=== PATIENT | female | born 1935 | race Caucasian/White ===

== ENCOUNTER 2017-01-31 05:41 | Outpatient (CLI) | payer MEDICARE, OTHER ==
[~2017-01-31] VITALS: Ht 157.5 cm; Wt 52.2 kg
[~2017-01-31 05:41] MED LIST: AMLO5TAB2 PO; ASP325T PO; ATOR80TA PO; B12 SHOT IM; CALC-80 PO; CHOL100011 PO; COLC0.6T7 PO; DIPH25TA82 PO; EZET10TA5 PO; GLUC-113 PO; GLUC-96 PO; I CAPS; MAGN400T39 PO; MTP100TCR PO; OMG1KC PO; TRIA1CAP4 PO; UBID200C PO; VIT1CAPS31 PO
[2017-01-31] MEDS ORDERED: CHOL200059 PO (11:09)
[2017-01-31] MEDS ORDERED: GLIM2TAB PO (11:09)
[2017-01-31] MEDS ORDERED: ASPI-999 PO (11:09)
[2017-01-31] MEDS ORDERED: VALS320T14 PO (11:09)
[2017-01-31] MEDS ORDERED: OMEG-109 PO (11:09)
[2017-01-31] MEDS ORDERED: PANT40TA3 PO (11:09)
[2017-01-31] MEDS ORDERED: EST30C VG (11:09)
== END 2017-01-31 11:11 ==
LOC: PREOP 05:41
PROVIDERS: ATTEND Internal Medicine
DX: Z01.818 Encounter for other preprocedural examination (principal); Z86.010 Personal history of colon polyps; Z80.0 Family history of malignant neoplasm of digestive organs

== ENCOUNTER → 2017-02-02 | Day surgery (SDC) | payer MEDICARE ==
[~2017-02-02] MED LIST changes: +1/2 NS IV SOLUTION 1,000 ML IV ONE; +ASPI-999 PO; +CHOL200059 PO; +EST30C VG; +FLUMAZENIL (ROMAZICON) 0.1 MG/ML 5 ML VIAL INJ PRN; +GLIM2TAB PO; +HURRICAINE EXT TUBE (BENZOCAINE) XX PRN; +LIDOCAINE JELLY 2% (XYLOCAINE) 5 ML TUBE ONE; +MIDAZOLAM 2 MG/2 ML (VERSED) VIAL ONE; +NALOXONE 0.4 MG/ML 1 ML (NARCAN) VIAL IVP PRN; +OMEG-109 PO; +PANT40TA3 PO; +VALS320T14 PO; +fentaNYL INJECTION 100 MCG/2 ML AMP ONE
[2017-02-02 09:25] VITALS: BP 133/61
--- NOTE | 2017-02-02 09:38 | HISTORY AND PHYSICAL ---
DICTATING PHYSICIAN: Dr. Coon DATE OF ADMISSION: Mrs. Montano is an 81-year-old white female referred for screening colonoscopy. She is deemed to be of higher than average risk as her mother succumbed to colon cancer at the age of 75. Her last colonoscopy was 5 years ago. It was reviewed and medical record and reportedly normal by Dr. Jerry. No diverticular disease was noted and no neoplasia was found. Over the past year Mrs. Montano has noted change in bowel habit. She is going 5 to 6 times per day, stools are reportedly loose. She has not noted any bright red blood per rectum or melena. She has not been able to associate it with specific medication change. She denies cramping and has had no fecal incontinence. She denies chills or fever. She does have a past history of colon polyps as she recalls; I only have access to her last colonoscopy in early 2011. PAST MEDICAL HISTORY: 1. Significant for coronary artery disease. 2. She is status post bypass grafting many years ago. 3. She also has a bioprosthetic aortic valve. 4. Her last echo from June 2016 was reviewed and LV function was normal. She does have a severe aortic stenosis but denies chest pain, dyspnea on exertion or shortness of breath. 5. She appears younger than her stated age reports that she is physically active. PAST SURGICAL HISTORY: Significant for coronary artery bypass grafting and aortic valve replacement. MEDICATIONS: 1. On admission include: Metoprolol 100 mg daily. 2. Amlodipine 5 mg daily. 3. Glimepiride 2 mg daily. 4. Magnesium oxide 400 mg daily. 5. Valsartan 320 mg daily. 6. 81 mg aspirin daily. 7. Atorvastatin 80 mg at bedtime. 8. Zetia 10 mg at bedtime/ 9. Pantoprazole 40 mg she takes on a p.r.n. basis for reflux symptoms. 10. She does take fish oil. 11. Glucosamine/chondroitin. SOCIAL HISTORY: She is retired with no past smoking history and rare alcohol intake. PHYSICAL EXAMINATION: Reveals a pleasant white female, appearing younger than her stated age. Initial blood pressure is 164/64; at the end of the interview she was 140/60. Heart rate was 66 and regular. NECK: Revealed no JVD, adenopathy or bruits. HEENT EXAMINATION: Unremarkable. Sclera were anicteric, there is no evidence for pallor. CHEST: Clear. CV: Reveals regular rate and rhythm with a 2/6 systolic ejection murmur heard best at the left lower sternal border. No S3 or S4 are noted. There is a soft apical murmur as well 1 to 2/6 ABDOMEN: Soft, supple without masses, organomegaly or tenderness. EXTREMITIES: Reveal no cyanosis, clubbing, or edema. ASSESSMENT: The patient was set-up for screening colonoscopy on the 04 of April. The patient was advised to discontinue aspirin now and continue her other medications. Prep instructions with split dose Colyte prep were given and questions were answered. I thank you for the referral of this pleasant lady. Sincerely, Gustavo Coon Job ID: [id number] Dictated Date: 01/30/2017 15:02:00 Marketing Planning Manager Date: 01/31/2017 09:26:37/esmer
--- NOTE | 2017-02-02 10:51 | Pre-Op Note & Conscious Sedat ---
Pre-Operative Progress Note H&P Reviewed The H&P was reviewed, patient examined and no changes noted. Date H&P Reviewed: Feb 02, 2017 Conscious Sedation Pre-Proced ASA Class: 2 Airway Mallampati Classification: (inaja appropriate class) I. II. III, IV Lungs Heart ASA score ASA 1: a normal healthy patient ASA 2: a patient with a mild systemic disease (mid diabetes, controlled hypertension, obesity ASA 3: a patient with a severe systemic disease that limits activity (angina , COPD, prior Myocardial infarction) ASA 4: a patient with an incapacitating disease that is a constant threat to life (CHF, renal failure) ASA 5: a moribund patient not expected to survive 24 hrs. (ruptured aneurysm) ASA 6: a declared brain patient whose organs are being harvested. For emergent operations, add the letter E after the classification Grade 2 Sedation Plan: Analgesia, Amnesia, Plan communicated to team members, Discussed options with patient/fam, Discussed risks with patient/fam Note The patient is an appropriate candidate to undergo the planned procedure, sedation, and anesthesia. The patient immediately re-assessed prior to indication. YOVANNY WEIR MD Feb 02, 2017 10:51
[2017-02-02] MEDS: fentaNYL INJECTION 100 MCG/2 ML AMP IVP PRN ×2 (10:53→11:10)
[2017-02-02] MEDS: MIDAZOLAM 2 MG/2 ML (VERSED) VIAL IVP PRN ×3 (10:55→11:15)
[2017-02-02 11:40] VITALS: BP 122/58
[2017-02-02 12:10] VITALS: BP 139/63
[2017-02-02 12:30] VITALS: BP 139/63
--- NOTE | 2017-02-05 | PROCEDURE REPORT ---
PROCEDURE PHYSICIAN: YOVANNY WEIR DATE OF PROCEDURE: 02/02/2017 REFERRING PHYSICIAN: Dr. Díaz COLONOSCOPY SUMMARY: INDICATION FOR THE PROCEDURE: Screening colonoscopy. The patient was placed in the left lateral position. Prior to undergoing colonoscopy, digital rectal evaluation was performed. Anal sphincter tone was normal and the perianal reflex was intact. No abnormalities were noted to digital inspection of the anal canal or distal rectal vault. The colonoscope was then inserted into the rectum and under direct visualization, advanced to cecum. The cecum was identified by identification of the ileocecal valve, cecal strap, as well as appendiceal orifice. Photographic documentation was obtained. A careful inspection was made as the colonoscope was withdrawn. The patient tolerated the procedure well. FINDINGS: One small grade I internal hemorrhoid complex was present at the 2 o'clock position. The rectum, sigmoid colon, descending colon, transverse colon, ascending colon and cecum were otherwise unremarkable. No evidence for neoplasia, diverticular disease or vascular malformations were noted. ASSESSMENT: One small grade I internal hemorrhoid complex was noted at 2 o'clock position. This was an otherwise normal colonoscopy to cecum. Despite the patient's family history, considering her age and that this is her second normal screening colonoscopy, would not advocate future screening colonoscopy. I thank you for the referral of this pleasant lady. Sincerely, Job ID: [id number] Dictated Date: 02/02/2017 16:36:13 Rags Laborer Date: 02/04/2017 23:54:52 / jennifer
--- OUTSIDE RECORDS SUMMARY | 2017-02-25 08:01 | XMS REPORT | Continuity of Care Document ---
Author Author [facility] Organization [facility] Address Unknown Phone Unavailable Allergies Active Description Code Type Severity Reaction Onset Reported/Identified Relationship to Patient Clinical Status Yes niacin [id number] Drug Allergy Unknown N/A 12/04/2006 Medications Problems Date Dx Coded Attending Type Code Diagnosis Diagnosed By 09/26/2010 Ot 403.90 09/26/2010 Ot 585.9 01/15/2012 Ot 272.0 PURE HYPERCHOLESTEROLEM 01/15/2012 Ot 401.9 HYPERTENSION NOS 01/15/2012 Ot V10.05 HX OF COLONIC MALIGNANCY 01/15/2012 Ot V43.3 HEART VALVE REPLAC NEC 01/15/2012 Ot V45.81 AORTOCORONARY BYPASS 01/15/2012 Ot V58.66 LONG-TERM (CURRENT) USE OF ASPIRIN 01/15/2012 Ot V58.69 OTH MED,LT,CURRENT USE 01/15/2012 Ot V76.51 SCREEN MAL NEOP-COLON 05/26/2013 NIVIA ZUNIGA MD Ot 726.5 ENTHESOPATHY OF HIP 05/26/2013 NIVIA ZUNIGA MD Ot 737.30 IDIOPATHIC SCOLIOSIS 05/26/2013 NIVIA ZUNIGA MD Ot V57.1 PHYSICAL THERAPY NEC 10/23/2013 JOSE ROBERTSON MD Ot 723.1 CERVICALGIA 10/23/2013 JOSE ROBERTSON MD Ot V57.1 PHYSICAL THERAPY NEC 01/09/2014 JOSE ROBERTSON MD Ot 721.3 LUMBOSACRAL SPONDYLOSIS 01/09/2014 JOSE ROBERTSON MD Ot 722.52 LUMB/LUMBOSAC DISC DEGEN 01/09/2014 JOSE ROBERTSON MD Ot 723.1 CERVICALGIA 01/09/2014 JOSE ROBERTSON MD Ot 738.4 ACQ SPONDYLOLISTHESIS 01/09/2014 JOSE ROBERTSON MD Ot V58.69 OTH MED,LT,CURRENT USE 03/24/2014 NIVIA ZUNIGA MD Ot 719.45 JOINT PAIN-PELVIS 03/24/2014 NIVIA ZUNIGA MD Ot 724.2 LUMBAGO 03/24/2014 NIVIA ZUNIGA MD Ot V57.1 PHYSICAL THERAPY NEC 05/26/2015 CAROLYNN PEREIRA MD Ot 250.00 DIAB DEXTER WO COMPL, TYPE II OR UNSPEC TY 05/26/2015 CAROLYNN PEREIRA MD Ot 272.4 HYPERLIPIDEMIA NEC/NOS 05/26/2015 CAROLYNN PEREIRA MD Ot 403.90 HYPTNSV CHR KID DIS, UNSPEC, W CHR KD ST 05/26/2015 CAROLYNN PEREIRA MD Ot 414.01 CORONARY ATHEROSCLEROSIS OF [place] CORON 05/26/2015 CAROLYNN PEREIRA MD Ot 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 05/26/2015 CAROLYNN PEREIRA MD Ot 433.10 CAROTID ARTERY OCCLUSION W O CEREBRAL IN 05/26/2015 CAROLYNN PEREIRA MD Ot 585.9 CHRONIC KIDNEY DISEASE, UNSPECIFIED 05/26/2015 CAROLYNN PEREIRA MD Ot 786.09 RESPIRATORY ABNORM NEC 05/26/2015 CAROLYNN PEREIRA MD Ot 794.30 ABN CARDIOVASC STUDY NOS 05/26/2015 CAROLYNN PEREIRA MD Ot V43.3 HEART VALVE REPLAC NEC 05/26/2015 CAROLYNN PEREIRA MD Ot V45.81 AORTOCORONARY BYPASS 05/26/2015 CAROLYNN PEREIRA MD, Ot V58.69 OTH MED,LT,CURRENT USE 06/14/2015 BONNY LARA Ot 272.4 06/14/2015 BONNY LARA Ot 401.9 06/14/2015 BONNY LARA Ot 414.00 06/14/2015 BONNY LARA Ot 786.50 06/24/2015 BONNY LARA Ot 272.4 06/24/2015 BONNY LARA Ot 401.9 06/24/2015 BONNY LARA Ot 414.00 06/24/2015 BONNY LARA Ot 786.50 12/09/2015 MARY ANN CHAVARRIA Ot Z12.31 01/13/2016 Ot V76.12 01/13/2016 Ot 403.90 01/13/2016 Ot 585.9 01/13/2016 Ot 733.90 01/13/2016 Ot 401.9 01/13/2016 Ot 414.00 01/13/2016 Ot V43.3 01/13/2016 Ot V76.12 01/13/2016 Ot V72.84 01/13/2016 Ot 401.9 01/13/2016 Ot 414.00 01/13/2016 Ot 719.45 01/13/2016 Ot 722.52 01/13/2016 Ot 724.02 01/13/2016 Ot V76.12 01/13/2016 Ot 396.3 01/13/2016 Ot 397.0 01/13/2016 Ot 414.00 01/13/2016 Ot 429.3 01/13/2016 Ot V43.3 01/13/2016 NIVIA ZUNIGA MD Ot 733.90 01/13/2016 NIVIA ZUNIGA MD Ot V82.81 01/13/2016 JOSE ROBERTSON MD Ot 401.9 01/13/2016 JOSE ROBERTSON MD Ot 715.90 01/13/2016 JOSE ROBERTSON MD Ot 721.3 01/13/2016 JOSE ROBERTSON MD Ot 722.52 01/13/2016 JOSE ROBERTSON MD Ot 726.5 01/13/2016 JOSE ROBERTSON MD Ot 737.43 01/13/2016 JOSE ROBERTSON MD Ot V43.3 01/13/2016 JOSE ROBERTSON MD Ot V45.81 01/13/2016 JOSE ROBERTSON MD Ot V58.66 01/13/2016 JOSE ROBERTSON MD Ot V58.69 01/13/2016 NIVIA ZUNIGA MD Ot 719.47 01/13/2016 JOSE ROBERTSON MD Ot 737.30 01/13/2016 JOSE ROBERTSON MD Ot 722.52 01/13/2016 JOSE ROBERTSON MD Ot 738.4 01/13/2016 NIVIA ZUNIGA MD Ot V76.12 01/13/2016 BONNY LARA Ot 272.4 01/13/2016 BONNY LARA Ot 401.9 01/13/2016 CARRIE PA, BONNY K Ot 414.00 01/13/2016 CARRIE PA, BONNY K Ot 786.50 01/13/2016 MARY ANN CHAVARRIA Ot Z12.31 01/17/2016 CARRIE PA, BONNY K Ot E78.2 01/17/2016 CARIRE PA, BONNY K Ot I10 01/17/2016 CARRIE PA, BONNY K Ot I25.10 01/17/2016 CARRIE PA, BONNY K Ot I65.23 02/08/2016 CARRIE PA, BONNY K Ot E78.2 02/08/2016 CARRIE PA, BONNY K Ot I10 02/08/2016 CARRIE PA, BONNY K Ot I25.10 02/08/2016 CARRIE PA, BONNY K Ot I65.23 02/09/2016 CARRIE PA, BONNY K Ot E78.2 02/09/2016 CARRIE PA, BONNY K Ot I10 02/09/2016 CARRIE PA, BONNY K Ot I25.10 02/09/2016 CARRIE PA, BONNY K Ot I65.23 03/08/2016 TANNER MONTANA SENIOR IT SECURITY ANALYST Ot M25.421 EFFUSION, RIGHT ELBOW 03/08/2016 TANNER MONTANA SENIOR IT SECURITY ANALYST Ot M25.521 PAIN IN RIGHT ELBOW 03/15/2016 TANNER MONTANA SENIOR IT SECURITY ANALYST Ot M25.421 EFFUSION, RIGHT ELBOW 03/15/2016 TANNER [place] SENIOR IT SECURITY ANALYST Ot M25.521 PAIN IN RIGHT ELBOW 08/23/2016 Ot 401.9 HYPERTENSION NOS 08/23/2016 Ot 414.00 CORON ATHEROSCLER NOS TYPE VESSEL, NATIV 08/23/2016 Ot V43.3 HEART VALVE REPLAC NEC 08/23/2016 Ot V76.12 OTH SCREEN MAMMO-MALIGN NEOPLASM OF [place] 08/23/2016 Ot V72.84 EXAM PRE-OPERATIVE NOS 08/23/2016 Ot 401.9 HYPERTENSION NOS 08/23/2016 Ot 414.00 CORON ATHEROSCLER NOS TYPE VESSEL, NATIV 08/23/2016 Ot 719.45 JOINT PAIN-PELVIS 08/23/2016 Ot 722.52 LUMB/LUMBOSAC DISC DEGEN 08/23/2016 Ot 724.02 SPINAL STENOSIS, LUMBAR REG, W/OUT NEURO 08/23/2016 Ot V76.12 OT SCREEN MAMMO-MALIGN NEOPLASM OF [place] 08/23/2016 Ot 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 08/23/2016 Ot 397.0 TRICUSPID VALVE DISEASE 08/23/2016 Ot 414.00 CORON ATHEROSCLER NOS TYPE VESSEL, NATIV 08/23/2016 Ot 429.3 CARDIOMEGALY 08/23/2016 Ot V43.3 HEART VALVE REPLAC NEC 08/23/2016 NIVIA ZUNIGA MD Ot 733.90 BONE CARTILAGE DIS NOS 08/23/2016 NIVIA ZUNIGA MD Ot V82.81 SCREENING FOR OSTEOPOROSIS 08/23/2016 JOSE ROBERTSON MD Ot 401.9 HYPERTENSION NOS 08/23/2016 JOSE ROBERTSON MD Ot 715.90 OSTEOARTHROS NOS-UNSPEC 08/23/2016 JOSE ROBERTSON MD Ot 721.3 LUMBOSACRAL SPONDYLOSIS 08/23/2016 JOSE ROBERTSON MD Ot 722.52 LUMB/LUMBOSAC DISC DEGEN 08/23/2016 JOSE ROBERTSON MD Ot 726.5 ENTHESOPATHY OF HIP 08/23/2016 JOSE ROBERTSON MD Ot 737.43 SCOLIOSIS IN OTH DIS 08/23/2016 JOSE ROBERTSON MD Ot V43.3 HEART VALVE REPLAC NEC 08/23/2016 JOSE ROBERTSON MD Ot V45.81 AORTOCORONARY BYPASS 08/23/2016 JOSE ROBERTSON MD Ot V58.66 LONG-TERM (CURRENT) USE OF ASPIRIN 08/23/2016 JOSE ROBERTSON MD Ot V58.69 OT MED,LT,CURRENT USE 08/23/2016 NIVIA ZUNIGA MD Ot 719.47 JOINT PAIN-ANKLE 08/23/2016 JOSE ROBERTSON MD Ot 737.30 IDIOPATHIC SCOLIOSIS 08/23/2016 JOSE ROBERTSON MD Ot 722.52 LUMB/LUMBOSAC DISC DEGEN 08/23/2016 JOSE ROBERTSON MD Ot 738.4 ACQ SPONDYLOLISTHESIS 08/23/2016 NIVIA ZUNIGA MD Ot V76.12 OTH SCREEN MAMMO-MALIGN NEOPLASM OF [place] 08/23/2016 BONNY LARA Ot 272.4 HYPERLIPIDEMIA NEC/NOS 08/23/2016 BONNY LARA Ot 401.9 HYPERTENSION NOS 08/23/2016 BONNY LARA Ot 414.00 CORON ATHEROSCLER NOS TYPE VESSEL, NATIV 08/23/2016 BONNY LARA Ot 786.50 CHEST PAIN NOS 08/23/2016 MARY ANN CHAVARRIA Ot Z12.31 ENCNTR SCREEN MAMMOGRAM FOR MALIGNANT NE 08/23/2016 BONNY LARA Ot E78.2 MIXED HYPERLIPIDEMIA 08/23/2016 BONNY LARA Ot I10 ESSENTIAL (PRIMARY) HYPERTENSION 08/23/2016 BONNY LARA Ot I25.10 ATHSCL HEART DISEASE OF [place] CORONARY 08/23/2016 BONNY LARA Ot I65.23 OCCLUSION AND STENOSIS OF BILATERAL UP 08/23/2016 TANNER [place]NA SENIOR IT SECURITY ANALYST Ot M25.421 EFFUSION, RIGHT ELBOW 08/23/2016 TANNER [place] SENIOR IT SECURITY ANALYST Ot M25.521 PAIN IN RIGHT ELBOW 08/23/2016 CAROLYNN PEREIRA MD Ot I12.9 HYPERTENSIVE CHRONIC KIDNEY DISEASE W ST 08/23/2016 CAROLYNN PEREIRA MD Ot I25.10 ATHSCL HEART DISEASE OF [place] CORONARY 08/23/2016 CAROLYNN PEREIRA MD Ot I65.23 OCCLUSION AND STENOSIS OF BILATERAL UP 08/23/2016 CAROLYNN PEREIRA MD Ot M47.816 SPONDYLOSIS W/O MYELOPATHY OR RADICULOPA 08/23/2016 CAROLYNN PEREIRA MD Ot N18.9 CHRONIC KIDNEY DISEASE, UNSPECIFIED 09/12/2016 CAROLYNN PEREIRA MD Ot I12.9 HYPERTENSIVE CHRONIC KIDNEY DISEASE W ST 09/12/2016 CAROLYNN PEREIRA MD Ot I25.10 ATHSCL HEART DISEASE OF [place] CORONARY 09/12/2016 CAROLYNN PEREIRA MD Ot I65.23 OCCLUSION AND STENOSIS OF BILATERAL UP 09/12/2016 CAROLYNN PEREIRA MD Ot M47.816 SPONDYLOSIS W/O MYELOPATHY OR RADICULOPA 09/12/2016 CAROLYNN PEREIRA MD Ot N18.9 CHRONIC KIDNEY DISEASE, UNSPECIFIED 09/20/2016 CAROLYNN PEREIRA MD Ot I12.9 HYPERTENSIVE CHRONIC KIDNEY DISEASE W ST 09/20/2016 CAROLYNN PEREIRA MD Ot I25.10 ATHSCL HEART DISEASE OF [place] CORONARY 09/20/2016 CAROLYNN PEREIRA MD Ot I65.23 OCCLUSION AND STENOSIS OF BILATERAL UP 09/20/2016 CAROLYNN PEREIRA MD Ot M47.816 SPONDYLOSIS W/O MYELOPATHY OR RADICULOPA 09/20/2016 CAROLYNN PEREIRA MD Ot N18.9 CHRONIC KIDNEY DISEASE, UNSPECIFIED 01/31/2017 DESTIN DAVIS, YOVANNY Up Ot Z01.818 ENCOUNTER FOR OTHER PREPROCEDURAL EXAMIN 01/31/2017 DESTIN DAVIS, YOVANNY Up Ot Z80.0 FAMILY HISTORY OF MALIGNANT NEOPLASM OF 01/31/2017 YOVANNY WEIR MD Ot Z86.010 PERSONAL HISTORY OF COLONIC POLYPS 02/02/2017 Ot V76.12 OTH SCREEN MAMMO-MALIGN NEOPLASM OF [place] 02/02/2017 Ot V72.84 EXAM PRE-OPERATIVE NOS 02/02/2017 Ot 401.9 HYPERTENSION NOS 02/02/2017 Ot 414.00 CORON ATHEROSCLER NOS TYPE VESSEL, NATIV 02/02/2017 Ot 719.45 JOINT PAIN-PELVIS 02/02/2017 Ot 722.52 LUMB/LUMBOSAC DISC DEGEN 02/02/2017 Ot 724.02 SPINAL STENOSIS, LUMBAR REG, W/OUT NEURO 02/02/2017 Ot V76.12 OTH SCREEN MAMMO-MALIGN NEOPLASM OF [place] 02/02/2017 Ot 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 02/02/2017 Ot 397.0 TRICUSPID VALVE DISEASE 02/02/2017 Ot 414.00 CORON ATHEROSCLER NOS TYPE VESSEL, NATIV 02/02/2017 Ot 429.3 CARDIOMEGALY 02/02/2017 Ot V43.3 HEART VALVE REPLAC NEC 02/02/2017 NIVIA ZUNIGA MD Ot 733.90 BONE CARTILAGE DIS NOS 02/02/2017 NIVIA ZUNIGA MD Ot V82.81 SCREENING FOR OSTEOPOROSIS 02/02/2017 JOSE ROBERTSON MD Ot 401.9 HYPERTENSION NOS 02/02/2017 JOSE ROBERTSON MD Ot 715.90 OSTEOARTHROS NOS-UNSPEC 02/02/2017 JOSE ROBERTSON MD Ot 721.3 LUMBOSACRAL SPONDYLOSIS 02/02/2017 JOSE ROBERTSON MD Ot 722.52 LUMB/LUMBOSAC DISC DEGEN 02/02/2017 JOSE ROBERTSON MD Ot 726.5 ENTHESOPATHY OF HIP 02/02/2017 JOSE ROBERTSON MD Ot 737.43 SCOLIOSIS IN OTH DIS 02/02/2017 JOSE ROBERTSON MD Ot V43.3 HEART VALVE REPLAC NEC 02/02/2017 JOSE ROBERTSON MD Ot V45.81 AORTOCORONARY BYPASS 02/02/2017 JOSE ROBERTSON MD Ot V58.66 LONG-TERM (CURRENT) USE OF ASPIRIN 02/02/2017 JOSE ROBERTSON MD Ot V58.69 OT MED,LT,CURRENT USE 02/02/2017 NIVIA ZUNIGA MD Ot 719.47 JOINT PAIN-ANKLE 02/02/2017 JOSE ROBERTSON MD Ot 737.30 IDIOPATHIC SCOLIOSIS 02/02/2017 JOSE ROBERTSON MD Ot 722.52 LUMB/LUMBOSAC DISC DEGEN 02/02/2017 JOSE ROBERTSON MD Ot 738.4 ACQ SPONDYLOLISTHESIS 02/02/2017 NIVIA ZUNIGA MD Ot V76.12 OTH SCREEN MAMMO-MALIGN NEOPLASM OF [place] 02/02/2017 BONNY LARA Ot 272.4 HYPERLIPIDEMIA NEC/NOS 02/02/2017 BONNY LARA Ot 401.9 HYPERTENSION NOS 02/02/2017 BONNY LARA Ot 414.00 CORON ATHEROSCLER NOS TYPE VESSEL, NATIV 02/02/2017 BONNY LARA Ot 786.50 CHEST PAIN NOS 02/02/2017 MARY ANN CHAVARRIA Ot Z12.31 ENCNTR SCREEN MAMMOGRAM FOR MALIGNANT NE 02/02/2017 BONNY LARA Ot E78.2 MIXED HYPERLIPIDEMIA 02/02/2017 BONNY LARA Ot I10 ESSENTIAL (PRIMARY) HYPERTENSION 02/02/2017 BONNY LARA Ot I25.10 ATHSCL HEART DISEASE OF [place] CORONARY 02/02/2017 BONNY LARA Ot I65.23 OCCLUSION AND STENOSIS OF BILATERAL UP 02/02/2017 TANNER MONTANA APRN Ot M25.421 EFFUSION, RIGHT ELBOW 02/02/2017 TANNER MONTANA APRN Ot M25.521 PAIN IN RIGHT ELBOW 02/02/2017 CAROLYNN PEREIRA MD Ot I12.9 HYPERTENSIVE CHRONIC KIDNEY DISEASE W ST 02/02/2017 CAROLYNN PEREIRA MD, Ot I25.10 ATHSCL HEART DISEASE OF [place] CORONARY 02/02/2017 CAROLYNN PEREIRA MD, Ot I65.23 OCCLUSION AND STENOSIS OF BILATERAL UP 02/02/2017 CAROLYNN PEREIRA MD, Ot M47.816 SPONDYLOSIS W/O MYELOPATHY OR RADICULOPA 02/02/2017 CAROLYNN PEREIRA MD, Ot N18.9 CHRONIC KIDNEY DISEASE, UNSPECIFIED 02/06/2017 YOVANNY WEIR MD Ot K64.0 FIRST DEGREE HEMORRHOIDS 02/06/2017 YOVANNY WEIR MD Ot Z12.11 ENCOUNTER FOR SCREENING FOR MALIGNANT NE 02/06/2017 YOVANNY WEIR MD Ot Z80.0 FAMILY HISTORY OF MALIGNANT NEOPLASM OF 02/06/2017 YOVANNY WEIR MD Ot Z86.010 PERSONAL HISTORY OF COLONIC POLYPS 02/06/2017 YOVANNY WEIR MD, Ot K64.0 FIRST DEGREE HEMORRHOIDS 02/06/2017 YOVANNY WEIR MD Ot Z12.11 ENCOUNTER FOR SCREENING FOR MALIGNANT NE 02/06/2017 YOVANNY WEIR MD Ot Z80.0 FAMILY HISTORY OF MALIGNANT NEOPLASM OF 02/06/2017 YOVANNY WEIR MD Ot Z86.010 PERSONAL HISTORY OF COLONIC POLYPS 02/13/2017 CAROLYNN PEREIRA MD Ot I65.23 OCCLUSION AND STENOSIS OF BILATERAL UP Procedures Results Test Result Range Capillary blood glucose measurement by glucometer (mass/volume) - 02/02/17 10: 22 Capillary blood glucose measurement by glucometer (mass/volume) 104 mg/dL 70-110 Encounters ACCT No. Visit Date/Time Discharge Status Pt. Type Provider Facility Loc./Unit Complaint [id number] 01/31/2017 05:41:00 2016 11:11:00 DIS Outpatient YOVANNY WEIR MD [facility] PREOP DIAGNOSTIC [id number] 05/26/2015 06:45:00 2014 14:35:00 DIS Outpatient CAROLYNN PEREIRA MD [facility] CATH CP CAD HTN HLP [id number] 05/19/2015 09:53:00 2014 23:59:59 CLS Outpatient BONNY LARA [facility] CARD CAD,CP,HTN,HYPERLIPADEMIA [id number] 09/15/2014 14:34:00 2013 23:59:59 CLS Outpatient NIVIA ZUNIGA MD [facility] RAD SCREENING [id number] 03/20/2014 09:00:00 2013 14:22:00 DIS Outpatient NIVIA ZUNIGA MD [facility] REHAB BILATERAL HIP PAIN [id number] 03/02/2014 08:22:00 2013 23:59:59 CLS Outpatient JOSE ROBERTSON MD [facility] RAD SPONDYLITIS [id number] 02/18/2014 09:35:00 2013 23:59:59 CLS Outpatient JOSE ROBERTSON MD [facility] RAD SPONDYLOLISTHESIS OF [place]UM[place] REGION [id number] 01/09/2014 08:23:00 2013 09:06:00 DIS Outpatient JOSE ROBERTSON MD [facility] CARD DDD-LUMBAR [id number] 10/23/2013 14:29:00 2012 16:16:00 DIS Outpatient JOSE ROBERTSON MD [facility] REHAB NECK PAIN [id number] 09/17/2013 16:42:00 2012 23:59:59 CLS Outpatient NIVIA ZUNIGA MD [facility] RAD RT ANKLE/FOOT PAIN [id number] 07/25/2013 07:00:00 2012 23:59:59 CLS Outpatient JOSE ROBERTSON MD [facility] CARD DEGENERATIVE DISC DISEASE-LUMBAR [id number] 07/11/2013 08:45:00 2012 23:59:59 CLS Outpatient NIVIA ZUNIGA MD [facility] RAD OSTEO [id number] 05/13/2013 14:26:00 2012 15:28:00 DIS Outpatient NADIA DAVIS, NIVIA Concepcion [facility] REHAB SCOLIOSIS;GREATER TROCHANTERIC BURSITIS R HIP [id number] 02/12/2017 10:36:00 ACT Outpatient CAROLYNN PEREIRA MD [facility] RAD I65.23 [id number] 02/02/2017 09:12:00 ACT Outpatient DESTIN DAVIS, YOVANNY Up [facility] ENDO HX POLYPS, FAMILY HX COLON CA [id number] 08/22/2016 08:35:00 ACT Outpatient CAROLYNN PEREIRA MD [facility] CARD CAD,HTN,CRI [id number] 02/16/2016 13:15:00 ACT Outpatient TANNER MONTANA APRN [facility] RAD ELBOW PAIN,SWELLING,REDNESS [id number] 01/13/2016 07:48:00 ACT Outpatient BONNY JJ [facility] CARD CAD,HTN,HLP,CAROTID ARTERY STENOSIS [id number] 11/19/2015 10:33:00 ACT Outpatient MARY ANN CHAVARRIA FOAM RUBBER MIXER [facility] RAD SCREENING [id number] 02/06/2013 10:57:00 Document Registration [id number] 11/01/2012 13:22:00 Document Registration [id number] 10/16/2012 12:08:00 Document Registration [id number] 07/03/2012 07:00:00 Document Registration [id number] 01/15/2012 06:55:00 Document Registration [id number] 01/12/2012 08:24:00 Document Registration [id number] 10/31/2011 09:55:00 Document Registration [id number] 07/27/2011 10:25:00 Document Registration [id number] 10/24/2010 10:17:00 Document Registration [id number] 09/27/2010 07:00:00 Document Registration [id number] 09/05/2010 09:25:00 Document Registration [id number] 06/30/2010 08:30:00 Document Registration
== END | disposition home or self-care (01) ==
LOC: DELPENDDIS → ENDO 09:12
PROVIDERS: ATTEND Internal Medicine
DX: Z12.11 Encounter for screening for malignant neoplasm of colon (principal); Z86.010 Personal history of colon polyps; Z80.0 Family history of malignant neoplasm of digestive organs; K64.0 First degree hemorrhoids
CPT/HCPCS: 82962

== ENCOUNTER → 2017-02-12 | Outpatient (CLI) | payer MEDICARE ==
[~2017-02-12] MED LIST changes: -1/2 NS IV SOLUTION 1,000 ML IV ONE; -FLUMAZENIL (ROMAZICON) 0.1 MG/ML 5 ML VIAL INJ PRN; -HURRICAINE EXT TUBE (BENZOCAINE) XX PRN; -LIDOCAINE JELLY 2% (XYLOCAINE) 5 ML TUBE ONE; -MIDAZOLAM 2 MG/2 ML (VERSED) VIAL ONE; -NALOXONE 0.4 MG/ML 1 ML (NARCAN) VIAL IVP PRN; -fentaNYL INJECTION 100 MCG/2 ML AMP ONE
[2017-02-12 11:05] LABS: CREATININE SERUM 1.62 MG/DL (0.60-1.30)
== END ==
LOC: RAD 10:36
PROVIDERS: ATTEND Internal Medicine Cardiovascular Disease
DX: I65.23 Occlusion and stenosis of bilateral carotid arteries (principal)
CPT/HCPCS: 36415; 82565; 84520

== ENCOUNTER → 2017-02-22 | Outpatient (CLI) | payer MEDICARE ==
--- NOTE | 2017-02-23 09:18 | Diagnostic Imaging Report ---
Bilateral screening mammogram The current study was also evaluated with a Computer Aided Detection (CAD) system. Indication: Screening. No current complaints stated on the questionnaire. COMPARISON: 11/19/15 FINDINGS: Scattered benign-appearing calcifications are seen. Scattered fibroglandular tissues are noted. Allowing for technique and positional differences, no suspicious change is seen. IMPRESSION: No significant change. ACR BI-RADS Category 2: Benign findings. Result letter will be mailed to the patient. Note: At least 10% of breast cancer is not imaged by mammography. Dictated by: Dictated on workstation # [id number]
== END ==
LOC: RAD 09:21
PROVIDERS: ATTEND Family Medicine
DX: Z12.31 Encounter for screening mammogram for malignant neoplasm of breast (principal)
CPT/HCPCS: 77067

== ENCOUNTER → 2017-02-22 | Outpatient (CLI) | payer MEDICARE ==
--- NOTE | 2017-02-26 14:06 | ECHOCARDIOGRAPHY REPORT ---
DATE OF SERVICE: 02/22/2017 REFERRING PHYSICIAN: Dr. Díaz. TEST DATE: 02/22/2017. MEASUREMENT: LVID end diastolic 3.7, IVS thickness 1.2, LVPW thickness 1.2, left atrial diameter 4.1, ejection fraction 60%. FINDINGS: 1. Technical quality is good. 2. The left ventricle is normal in size with moderate left ventricular hypertrophy noted diffusely. Systolic function appeared to be normal. Estimated ejection fraction is 60%. 3. The left atrium is mildly dilated. No clot or thrombus were seen within the left atrium. 4. The right atrium and right ventricle are normal in size. No clot or thrombus were seen within the right side. 5. Evaluation of the intra-atrial septum showed questionable patent foramen ovale. It was not well visualized in other views. 6. 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 Color Doppler flow across the mitral valve showed moderate mitral regurgitation. No mitral valve prolapse. Mitral valve area by pressure halftime is 1.7 cm2 which is similar to the study of August. Mild to moderate mitral stenosis. Doppler across the mitral valve showed equalization of E and A which is suggestive of diastolic dysfunction. 7. The aortic valve is heavily calcified, leaflets were not well visualized. 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 Doppler across the aortic valve estimated the peak gradient of 43 mmHg, mean gradient of 22 mmHg which is similar to the study of 08/2017. The valve area is ranging between 0.9 and 1.0 cm2 which is severe aortic valve stenosis. Mild to moderate aortic regurgitation. 8. Tricuspid valve is normal in morphology with mild tricuspid regurgitation noted by carotid Doppler flow. Doppler echo of the tricuspid valve. Estimated pulmonary artery pressure of 27 plus right atrial pressure. 9. Pulmonic valve is functioning normally. 10. No pericardial effusion. CONCLUSION: 1. Moderate left ventricular hypertrophy noted diffusely with normal systolic function. Estimated ejection fraction is 60%. Diastolic dysfunction is suggested by Doppler. 2. 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 3. Heavily calcified mitral valve with moderate mitral regurgitation, mild mitral stenosis. 4. Mild tricuspid regurgitation. 5. Questionable small patent foramen ovale was noted. 6. Estimated pulmonary artery pressure of 35 mmHg. Job ID: [id number] DocumentID: [id number] Dictated Date: 02/26/2017 09:58:19 Male Model Date: 02/26/2017 10:39:00 Dictated By: CAROLYNN PEREIRA MD
== END ==
LOC: CARD 09:24
PROVIDERS: ATTEND Internal Medicine Cardiovascular Disease
DX: I25.10 Atherosclerotic heart disease of native coronary artery without angina pectoris (principal); R07.9 Chest pain, unspecified; I10 Essential (primary) hypertension; E78.2 Mixed hyperlipidemia; R55 Syncope and collapse
CPT/HCPCS: 93306

== ENCOUNTER → 2017-08-28 | Outpatient (CLI) | payer MEDICARE, OTHER | LOC: CARD 09:56 | PROVIDERS: ATTEND Internal Medicine Cardiovascular Disease | DX: I25.10 Atherosclerotic heart disease of native coronary artery without angina pectoris (principal); I12.9 Hypertensive chronic kidney disease with stage 1 through stage 4 chronic kidney disease, or unspecified chronic kidney disease; N18.9 Chronic kidney disease, unspecified; I65.23 Occlusion and stenosis of bilateral carotid arteries; E78.2 Mixed hyperlipidemia; M10.9 Gout, unspecified | CPT/HCPCS: 93306 ==

== ENCOUNTER → 2018-07-18 | Outpatient (CLI) | payer MEDICARE ==
[~2018-07-18] MED LIST changes: -VALS320T14 PO; +VALS320T15 PO
--- NOTE | 2018-07-18 19:31 | Diagnostic Imaging Report ---
INDICATION: Routine screening. Comparison is made with prior mammogram from 02/22/2017 and 11/19/2015. 2-D and 3-D bilateral screening mammography was performed with CAD. The current study was also evaluated with a Computer Aided Detection (CAD) system. FINDINGS: Both breasts are heterogeneously dense, limiting the sensitivity of mammography. Benign calcifications are noted bilaterally. Benign nodular density in superior left breast appears stable. No new mass is identified. No malignant-appearing microcalcifications are seen. The axillae are unremarkable. IMPRESSION: No mammographic features suspicious for malignancy are identified. ACR BI-RADS Category 2: Benign findings. Result letter will be mailed to the patient. Note: At least 10% of breast cancer is not imaged by mammography. Dictated by: Dictated on workstation # [id number]
== END ==
LOC: RAD 09:35
PROVIDERS: ATTEND Family Medicine
DX: Z12.31 Encounter for screening mammogram for malignant neoplasm of breast (principal)
CPT/HCPCS: 77067

== ENCOUNTER → 2018-07-25 | Outpatient (CLI) | payer MEDICARE ==
--- NOTE | 2018-07-25 11:40 | Diagnostic Imaging Report ---
Indication: Osteoporosis. Comparison is made with prior study 07/11/2013. Evaluation of bilateral hips was performed. Lumbar spine was not evaluated due to lumbar spine fusion. Bone mineral density left femoral neck is 0.725 with T score -2.3. This compares with 0.838 and -1.4. Bone mineral density right femoral neck is 0.651 with T score -2.8. This compares with 0.707 and -2.4. Impression: Osteopenia of the left femoral neck and osteoporosis of the right femoral neck. Dictated by: Dictated on workstation # [id number]
== END ==
LOC: RAD 09:21
PROVIDERS: ATTEND Family Medicine
DX: M81.0 Age-related osteoporosis without current pathological fracture (principal); M85.88 Other specified disorders of bone density and structure, other site
CPT/HCPCS: 77080

== ENCOUNTER 2019-01-23 05:16 | Emergency (ER) | payer MEDICARE ==
[~2019-01-23] VITALS: Ht 152.4 cm; Wt 51.7 kg
[2019-01-23] MEDS ORDERED: HYDR-3923 (05:31)
[2019-01-23] MEDS ORDERED: PRD10T (05:31)
[2019-01-23] MEDS ORDERED: BENZ-36 (05:31)
--- NOTE | 2019-01-23 05:51 | Diagnostic Imaging Report ---
INDICATION: Cough and congestion. COMPARISON: 05/26/2015 FINDINGS: Single frontal radiographic view of the chest was obtained and demonstrates normal cardiac silhouette and pulmonary vasculature. Evaluation of lungs demonstrates probable small bibasilar effusions, right slightly greater than left. There appears to be 7 mm micronodular opacity within the right midlung. There is no focal consolidation or pneumothorax. Lungs appears sightly hyperinflated as well. Bony structures show no gross acute abnormalities. Sternotomy wires and postsurgical changes of previous cardiac valve repair are noted. IMPRESSION: 1. No evidence of failure or focal infiltrate. 2. Probable small bibasilar effusions, right greater than left. 3. Possible micronodular density on the right. Correlation with followup CT chest is recommended and could be performed on nonemergent basis. 4. Probable background emphysematous disease. Dictated by: Dictated on workstation # [id number]
[2019-01-23] MEDS ORDERED: ALBU2.5V4 INH (06:48)
[2019-01-23] MEDS ORDERED: BENZ100C18 PO (06:48)
--- NOTE | 2019-01-23 06:48 | ED Cough/URI ---
General Chief Complaint: Cough/Cold/Flu Symptoms Stated Complaint: SOB,COUGHING Nursing Triage Note: cough Sepsis Screen: No Definite Risk Source: patient Exam Limitations: no limitations History of Present Illness Date Seen by Provider: Jan 23, 2019 Time Seen by Provider: 05:20 Initial Comments This 83-year-old woman presents to emergency room with complaints of cough for about 2 weeks. She reports "nonstop cough" for the past couple of hours. She called the nurses line with her insurance company and they recommended she present to the emergency room. Temperature has been running near 100 for the past 3 days. She is afebrile at present. She denies any other symptoms. Allergies and Home Medications Allergies Coded Allergies: Niacin (Verified Allergy, Unknown, 12/04/06) Home Medications Albuterol Sulfate 2.5 Mg/3 Ml Vial.neb, 2.5 MG INH Q4H PRN for SHORTNESS OF BREATH Prescribed by: AMBER PATTEN on 01/23/19 0648 Aspirin 81 Mg Tab.chew, 81 MG PO DAILY, (Reported) Atorvastatin Calcium 80 Mg Tablet, 80 MG PO DAILY, (Reported) Benzonatate 100 Mg Capsule, 200 MG PO TID PRN for COUGH Prescribed by: AMBER PATTEN on 01/23/19 0648 Calcium Carbonate/Vitamin D3 1 Each Tablet, 1 EACH PO DAILY, (Reported) Cholecalciferol (Vitamin D3) 2,000 Unit Tablet, 2,000 UNIT PO DAILY, (Reported) Diphenhydramine Hcl 25 Mg Tablet, 1-2 EACH PO HS PRN, (Reported) Estrogens Conjugated 30 Gm Cr, 0.5 MG VG TWICE A WEEK, (Reported) Ezetimibe 10 Mg Tablet, 10 MG PO DAILY@0900, (Reported) Glimepiride 2 Mg Tablet, 2 MG PO DAILY, (Reported) Glucosa Hodges 2KCL/Chondroitin Hodges 1 Each Tablet, 1 EACH PO DAILY, (Reported) Magnesium Oxide 400 Mg Tablet, 400 MG PO DAILY, (Reported) Metoprolol Succinate 100 Mg Tab.sr.24h, 100 MG PO DAILY, (Reported) [place]-3 Fatty Acids/Fish Oil 1 Each Capsule, 1,200 MG PO BID, (Reported) Pantoprazole Sodium 40 Mg Tablet.dr, 40 MG PO DAILY PRN for HEARTBURN, (Reported ) Ubidecarenone 200 Mg Capsule, 200 MG PO DAILY, (Reported) Valsartan 320 Mg Tablet, 320 MG PO HS, (Reported) Patient Home Medication List Home Medication List Reviewed: Yes Review of Systems Review of Systems Constitutional: no symptoms reported EENTM: no symptoms reported Respiratory: see HPI Cardiovascular: no symptoms reported Gastrointestinal: no symptoms reported Genitourinary: no symptoms reported : No Musculoskeletal: no symptoms reported Skin: no symptoms reported Psychiatric/Neurological: No Symptoms Reported Hematologic/Lymphatic: No Symptoms Reported Past Xpbqlwy-Yhuuhw-Zugwrt Hx Past Med/Social Hx: Reviewed and Corrections made Patient Social History Alcohol Use: Denies Use Number of Drinks Today: Alcohol Beverage of Choice: Wine Recreational Drug Use: No Smoking Status: Never a Smoker 2nd Hand Smoke Exposure: No Recent Foreign Travel: No Contact w/Someone Who Travel: No Recent Infectious Disease Expo: No Recent Hopitalizations: No Immunizations Up To Date Tetanus Booster (TDap): Unknown Date of Pneumonia Vaccine: Jul 27, 2014 Date of Influenza Vaccine: Sep 02, 2016 Seasonal Allergies Seasonal Allergies: No Past Medical History Surgeries: Yes (back sx, aortic valve replaced) CABG, Orthopedic, Valve Replacement (porcine valve replacement) Respiratory: No Cardiac: Yes Coronary Artery Disease, Heart Murmur, High Cholesterol, Hypertension Neurological: No : No 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 0.0oz. 51.696376ei; 21.0 BMI Method:Stated General Appearance: WD/WN, no apparent distress HEENT: PERRL/EOMI, normal ENT inspection, pharynx normal Neck: normal inspection Respiratory: no respiratory distress, no accessory muscle use, wheezing (subtle ) Cardiovascular: regular rate, rhythm, no edema, systolic murmur Gastrointestinal: normal bowel sounds, non tender, soft Extremities: normal inspection, no pedal edema Neurologic/Psychiatric: special officer II-XII nml as tested, no motor/sensory deficits, alert, normal mood/affect, oriented x 3 Skin: normal color, warm/dry Progress/Results/Core Measures Suspected Sepsis Recent Fever Within 48 Hours: No Infection Criteria Present: None New/Unexplained Altered Menta: No Sepsis Screen: No Definite Risk SIRS Temperature:98.0 Pulse: 69 Respiratory Rate: 18 Blood Pressure 180 /73 Mean: 108 Results/Orders My Orders Orders - AMBER MCCANN MD Chest Pa/Lat (2 View) (01/23/19 05:28) Vital Signs/I&O 01/23/19 01/23/19 01/23/19 05:20 05:20 06:57 Temp 98.0 98.0 Pulse 69 53 Resp 18 16 B/P (MAP) 180/73 (108) 166/82 (110) Pulse Ox 98 97 O2 Delivery Room Air Room Air Room Air Capillary Refill : Less Than 3 Seconds Blood Pressure Mean: 108 Progress Note : Progress Note Chest x-ray showed no evidence of pneumonia. The questionable nodular density on the chest x-ray was discussed with the patient. She should visit with her primary care provider to determine if further evaluation is warranted. Tessalon Perles and an inhaler were prescribed. Diagnostic Imaging Diagonstic Imaging: Xray Plain Films/CT/US/NM/MRI: chest Comments Chest x-ray viewed by me and report reviewed. See report below: NAME: [facility] REC#: [id number] PT STATUS: DEP ER : [id number] PHYSICIAN: AMBER MCCANN MD ADMIT DATE: 01/23/19/ER Signed Date of Exam: 01/23/19 CHEST PA/LAT (2 VIEW) INDICATION: Cough and congestion. COMPARISON: 05/26/2015 FINDINGS: Single frontal radiographic view of the chest was obtained and demonstrates normal cardiac silhouette and pulmonary vasculature. Evaluation of lungs demonstrates probable small bibasilar effusions, right slightly greater than left. There appears to be 7 mm micronodular opacity within the right midlung. There is no focal consolidation or pneumothorax. Lungs appears sightly hyperinflated as well. Bony structures show no gross acute abnormalities. Sternotomy wires and postsurgical changes of previous cardiac valve repair are noted. IMPRESSION: 1. No evidence of failure or focal infiltrate. 2. Probable small bibasilar effusions, right greater than left. 3. Possible micronodular density on the right. Correlation with followup CT chest is recommended and could be performed on nonemergent basis. 4. Probable background emphysematous disease. Dictated by: Dictated on workstation # [id number] Dict: 01/23/19 0545 Trans: 01/23/19 1132 Interpreted by: RAYA BAZAN MD Electronically signed by: RAYA BAZAN MD 01/23/19 1132 Departure Impression Primary Impression: Cough Additional Impressions: Acute upper respiratory infection Abnormal chest x-ray Disposition: HOME, SELF-CARE Condition: Improved Departure-Patient Inst. Decision time for Depature: 06:43 Referrals: ERIC MONTALVO DO (PCP/Family) Primary Care Physician Patient Instructions: Cough, Adult (DC) Add. Discharge Instructions: For wheezing, shortness of breath, or uncontrolled cough, use the albuterol nebulizer. For cough suppression you may take Tessalon Perles as prescribed. Return to care if symptoms are worsening. Contact your primary care provider if you have further problems or concerns. All discharge instructions reviewed with patient and/or family. Voiced understanding. Scripts Albuterol Sulfate (Albuterol Sulfate) 2.5 Mg/3 Ml Vial.neb 2.5 MG INH Q4H PRN for SHORTNESS OF BREATH, #20 EA Prov: AMBER MCCANN MD 01/23/19 Benzonatate (TESSALON PERLES) 100 Mg Capsule 200 MG PO TID PRN for COUGH, #10 CAP Prov: AMBER MCCANN MD 01/23/19 Copy Copies To 1: ERIC MONTALVO JOSHUA T MD Jan 23, 2019 06:48
[2019-01-23 06:57] VITALS: BP 166/82
== END 2019-01-23 06:57 | disposition home or self-care (01) ==
LOC: EDUNIT# 05:16 → ER 05:18
DX: J06.9 Acute upper respiratory infection, unspecified (principal); E78.00 Pure hypercholesterolemia, unspecified; E11.9 Type 2 diabetes mellitus without complications; K21.9 Gastro-esophageal reflux disease without esophagitis; I10 Essential (primary) hypertension; Z88.8 Allergy status to other drugs, medicaments and biological substances; Z85.828 Personal history of other malignant neoplasm of skin; Z79.82 Long term (current) use of aspirin; Z79.4 Long term (current) use of insulin; Z95.1 Presence of aortocoronary bypass graft; Z95.2 Presence of prosthetic heart valve
CPT/HCPCS: 71046

== ENCOUNTER → 2019-01-29 | Outpatient (CLI) | payer MEDICARE ==
[~2019-01-29] MED LIST changes: +ALBU2.5V4 INH; +BENZ-36; +BENZ100C18 PO; +HYDR-3923; +PRD10T
--- NOTE | 2019-01-29 13:32 | Diagnostic Imaging Report ---
PROCEDURE: CT chest without contrast. TECHNIQUE: Multiple contiguous axial images were obtained through the chest without the use of intravenous contrast. Auto Exposure Controls were utilized during the CT exam to meet ALARA standards for radiation dose reduction. INDICATION: Nodular opacity projected over the right lung on recent radiograph. FINDINGS: No lung mass or suspicious pulmonary nodule. No evidence for edema or pneumonia. No thoracic effusion. Calcified aorta is nonaneurysmal. There are postsurgical changes to the heart and sternum with no acute chest wall pathology. No effusion or pneumothorax. Visualized upper abdomen is nonacute. IMPRESSION: No evidence for lung mass or other neoplastic process. No acute appearing abnormality. Dictated by: Dictated on workstation # [id number]
== END ==
LOC: RAD 12:38
PROVIDERS: ATTEND Family Medicine
DX: I70.0 Atherosclerosis of aorta (principal); R91.8 Other nonspecific abnormal finding of lung field; Z98.890 Other specified postprocedural states
CPT/HCPCS: 71250

== ENCOUNTER → 2019-03-10 | Outpatient (CLI) | payer MEDICARE | LOC: CARD 08:56 | PROVIDERS: ATTEND Internal Medicine Cardiovascular Disease | DX: I08.3 Combined rheumatic disorders of mitral, aortic and tricuspid valves (principal); I25.10 Atherosclerotic heart disease of native coronary artery without angina pectoris; I10 Essential (primary) hypertension; E78.5 Hyperlipidemia, unspecified | CPT/HCPCS: 93306 ==

== ENCOUNTER → 2020-06-21 | Outpatient (CLI) | payer MEDICARE ==
[~2020-06-21] MED LIST changes: -GLIM2TAB PO; +GLIM2TAB4 PO
== END ==
LOC: CARD 12:03
PROVIDERS: ATTEND Internal Medicine Cardiovascular Disease
DX: I25.10 Atherosclerotic heart disease of native coronary artery without angina pectoris (principal); I10 Essential (primary) hypertension; E78.5 Hyperlipidemia, unspecified; I08.1 Rheumatic disorders of both mitral and tricuspid valves; R55 Syncope and collapse
CPT/HCPCS: 93306

== ENCOUNTER → 2020-06-23 | Outpatient (CLI) | payer MEDICARE | LOC: LAB 12:41 | PROVIDERS: ATTEND Internal Medicine Cardiovascular Disease | DX: I10 Essential (primary) hypertension (principal); I25.10 Atherosclerotic heart disease of native coronary artery without angina pectoris; R55 Syncope and collapse | CPT/HCPCS: 87040 ==

== ENCOUNTER → 2020-07-09 | Outpatient (CLI) | payer MEDICARE ==
--- NOTE | 2020-07-09 11:39 | Diagnostic Imaging Report ---
EXAM: Digital mammogram bilateral screening This study was compared to the prior exams of 07/18/2018, 02/22/2017 and 11/19/2015. There are no current complaints. The current study was also evaluated with a Computer Aided Detection (CAD) system. FINDINGS: The fibroglandular tissue in both breasts is heterogeneously dense. This does limit the sensitivity of this exam. Overall, there does not appear to have been any significant change when compared to the prior study. No primary or secondary sign of malignancy is noted. IMPRESSION: There is no radiographic evidence for malignancy. ACR BI-RADS Category 1: Negative. Result letter will be mailed to the patient. Note: At least 10% of breast cancer is not imaged by mammography. Dictated by: Dictated on workstation # [id number]
== END ==
LOC: RAD 09:45
PROVIDERS: ATTEND Family Medicine
DX: Z12.31 Encounter for screening mammogram for malignant neoplasm of breast (principal)
CPT/HCPCS: 77063; 77067

== ENCOUNTER → 2021-04-08 | Outpatient (CLI) | payer MEDICARE ==
[~2021-04-08] MED LIST changes: +ACHD5005 PO; +CYCL5TAB PO; +DOCU-143 PO; -PANT40TA3 PO; +PANT40TA52 PO
== END ==
LOC: CARD 11:30
PROVIDERS: ATTEND Internal Medicine Cardiovascular Disease
DX: I11.9 Hypertensive heart disease without heart failure (principal); I08.3 Combined rheumatic disorders of mitral, aortic and tricuspid valves; Z95.2 Presence of prosthetic heart valve
CPT/HCPCS: 93306

== ENCOUNTER 2021-04-09 08:35 | Emergency (ER) | payer MEDICARE ==
[~2021-04-09] VITALS: Ht 152.4 cm; Wt 48.1 kg
[~2021-04-09 08:35] MED LIST changes: -ACHD5005 PO; -CYCL5TAB PO; -DOCU-143 PO
[2021-04-09 09:12] LABS: BILIRUBIN,URINE NEGATIVE (NEGATIVE); CLARITY,URINE CLEAR; COLOR,URINE YELLOW; GLUCOSE, URINE (UA) NEGATIVE (NEGATIVE); KETONES,URINE NEGATIVE (NEGATIVE); LEUKOCYTE ESTERASE ,URINE NEGATIVE (NEGATIVE); NITRITE,URINE NEGATIVE (NEGATIVE); PROTEIN,URINE TRACE (NEGATIVE)
[2021-04-09 09:20] LABS: BACTERIA,URINE NEGATIVE /HPF; RBC,URINE 0-2 /HPF; SQUAMOUS EPITHELIAL CELL,UR 0-2 /HPF; WBC,URINE 0-2 /HPF
[2021-04-09] MEDS ORDERED: ORPHENADRINE 60 MG/2 ML (NORFLEX) AMP (ED ONLY) IM ONE (09:30)
[2021-04-09] MEDS ORDERED: HYDROcodone/APAP 5 MG/325 MG (LORTAB) TAB PO ONE (09:30)
--- NOTE | 2021-04-09 10:34 | ED General ---
General Chief Complaint: General Problems/Pain Stated Complaint: BACK PAIN,LOWER BACK LEFT SIDE Nursing Triage Note: AMB TO [facility] PATIENT REPORTS THAT WAS THROWING MULCH ON SUN HAD HAD L BACK AND HIP PAIN WITH WITH RADATION TO KNEE. HAS BEEN TAKING TYLENOL. PATIENT REPORTS HAS HAD COVID VACCAINE. Nursing Sepsis Screen: No Definite Risk Source of Information: Patient Exam Limitations: No Limitations (SHANTI LIGHT MED STUDENT) History of Present Illness Date Seen by Provider: Apr 09, 2021 Time Seen by Provider: 09:00 Initial Comments Mrs. Montano is a 85 yo female that presents today with lower back pain. She states the pain started on Sunday after a day of gardening. She thinks she might have overdone it a bit. She states that the pain is in the lower left side of her back and radiates down her L leg. Rates the pain an 8/10. She has tried taking tylenol with no relief. She denies any falls or trauma. She states this pain is similar to when she had a pinched nerve on the R side of her back about 7 years ago. Location Injury Occurred: Lower L Back Timing/Duration: 3-4 Days Associated Systoms: Denies Symptoms (SHANTI LIGHT MED STUDENT) Initial Comments Patient denied any leg weakness, bowel dysfunction, or bladder dysfunction. She denies any notable trauma. (AMBER MCCANN MD) Allergies and Home Medications Allergies Coded Allergies: Niacin (Verified Allergy, Unknown, 12/04/06) Home Medications Albuterol Sulfate 2.5 Mg/3 Ml Vial.neb, 2.5 MG INH Q4H PRN for SHORTNESS OF BREATH Prescribed by: AMBER PATTEN on 01/23/19 0648 Aspirin 81 Mg Tab.chew, 81 MG PO DAILY, (Reported) Atorvastatin Calcium 80 Mg Tablet, 80 MG PO DAILY, (Reported) Benzonatate 100 Mg Capsule, 200 MG PO TID PRN for COUGH Prescribed by: AMBER PATTEN on 01/23/19 0648 Calcium Carbonate/Vitamin D3 1 Each Tablet, 1 EACH PO DAILY, (Reported) Cholecalciferol (Vitamin D3) 2,000 Unit Tablet, 2,000 UNIT PO DAILY, (Reported) Cyclobenzaprine HCl 5 Mg Tablet, 5-10 MG PO TID PRN for SPASMS Prescribed by: AMBER PATTEN on 04/09/21 1243 Diphenhydramine Hcl 25 Mg Tablet, 1-2 EACH PO HS PRN, (Reported) Docusate Sodium 100 Mg Capsule, 100 MG PO DAILY Use daily while on opioid pain medications to prevent constipation. Skip if stools are loose or runny. Prescribed by: AMBER PATTEN on 04/09/21 1244 Estrogens Conjugated 30 Gm Cr, 0.5 MG VG TWICE A WEEK, (Reported) Ezetimibe 10 Mg Tablet, 10 MG PO DAILY@0900, (Reported) Glimepiride 2 Mg Tablet, 2 MG PO DAILY, (Reported) Glucosa Hodges 2KCL/Chondroitin Hodges 1 Each Tablet, 1 EACH PO DAILY, (Reported) Hydrocodone/Acetaminophen 1 Each Tablet, 0.5-1 TAB PO Q6H PRN for PAIN-MODERATE (5-7) Prescribed by: AMBER PATTEN on 04/09/21 1243 Magnesium Oxide 400 Mg Tablet, 400 MG PO DAILY, (Reported) Metoprolol Succinate 100 Mg Tab.sr.24h, 100 MG PO DAILY, (Reported) [place]-3 Fatty Acids/Fish Oil 1 Each Capsule, 1,200 MG PO BID, (Reported) Pantoprazole Sodium 40 Mg Tablet.dr, 40 MG PO DAILY PRN for HEARTBURN, (Reported) Ubidecarenone 200 Mg Capsule, 200 MG PO DAILY, (Reported) Valsartan 320 Mg Tablet, 320 MG PO HS, (Reported) Patient Home Medication List Home Medication List Reviewed: Yes (SHANTI LIGHT MED STUDENT) Review of Systems Review of Systems Constitutional: other (Denies dizziness, fever, chills) Respiratory: other (Denies SOB, cough, sputum) Cardiovascular: other (Denies chest pain, palpatations) Gastrointestinal: other (Denies abdominal pain, constipation, diarrhea) Genitourinary: other (Denies pain with urination, hematuria) Musculoskeletal: back pain (Lower L side) Skin: no symptoms reported Psychiatric/Neurological: No Symptoms Reported (SHANTI LIGHT MED STUDENT) Past Wpfkysv-Ruemxx-Wwsmdr Hx Patient Social History Alcohol Use: Occasionally Uses Number of Drinks Today: Alcohol Beverage of Choice: Wine Smoking Status: Never a Smoker 2nd Hand Smoke Exposure: No Recent Infectious Disease Expo: No Recent Hopitalizations: No (SHANTI LIGHT AdRoll STUDENT) Immunizations Up To Date Tetanus Booster (TDap): Unknown Date of Pneumonia Vaccine: Jul 27, 2014 Date of Influenza Vaccine: Sep 02, 2016 (SHANTI LIGHT AdRoll STUDENT) Seasonal Allergies Seasonal Allergies: No (SHANTI LIGHT AdRoll STUDENT) Past Medical History Surgeries: Yes (back sx, aortic valve replaced) CABG, Orthopedic Respiratory: No Cardiac: Yes Heart Murmur, High Cholesterol, Hypertension Neurological: No Reproductive Disorders: No 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 0.0oz. 51.810145fr; 20.00 BMI Method:Stated General Appearance: WD/WN, Mild Distress Neck: Full Range of Motion Respiratory: Chest Non Tender, Lungs Clear, Normal Breath Sounds, No Accessory Muscle Use, No Respiratory Distress Cardiovascular: Regular Rate, Rhythm, No Edema, No Murmur, Normal Peripheral Pulses Gastrointestinal: Normal Bowel Sounds, Non Tender, Soft Back: Other (Tenderness to palpation on Lower L side and L hip) Extremity: Non Tender, No Calf Tenderness, Swelling (Mild swelling in L ankle) Neurologic/Psychiatric: Alert, Oriented x3 Skin: Normal Color, Warm/Dry (SHANTI LIGHT AdRoll STUDENT) Progress/Results/Core Measures Suspected Sepsis Recent Fever Within 48 Hours: No Infection Criteria Present: None New/Unexplained Altered Menta: No Sepsis Screen: No Definite Risk SIRS Temperature: Pulse: 69 Respiratory Rate: 18 Blood Pressure 174 /77 Mean: 109 (SHANTI LIGHT AdRoll STUDENT) Results/Orders Lab Results Laboratory Tests Test 04/09/21 09:06 Range/Units Urine Color YELLOW Urine Clarity CLEAR Urine pH 6.0 5-9 Urine Specific [place] 1.020 1.016-1.022 Urine Protein TRACE H NEGATIVE Urine Glucose (UA) NEGATIVE NEGATIVE Urine Ketones NEGATIVE NEGATIVE Urine Nitrite NEGATIVE NEGATIVE Urine Bilirubin NEGATIVE NEGATIVE Urine Urobilinogen 0.2 < = 1.0 MG/DL Urine Leukocyte Esterase NEGATIVE NEGATIVE Urine RBC (Auto) NEGATIVE NEGATIVE Urine RBC 0-2 /HPF Urine WBC 0-2 /HPF Urine Squamous Epithelial Cells 0-2 /HPF Urine Crystals NONE /LPF Urine Bacteria NEGATIVE /HPF Urine Casts NONE /LPF Urine Mucus NEGATIVE /LPF Urine Culture Indicated NO (AMBER MCCANN MD) My Orders Orders - AMBER MCCANN MD Ua Culture If Indicated (04/09/21 08:56) Orphenadrine Inj (Ed Only) (Norflex Inje (04/09/21 09:30) Hydrocodone/Apap 5/325 Tablet (Lortab 5 (04/09/21 09:30) Ct Lumbar Spine Wo (04/09/21 10:27) Ct Pelvis Wo (04/09/21 10:27) (AMBER MCCANN MD) Medications Given in ED Current Medications Medications Dose Ordered Sig/Yelena Route Start Time Stop Time Status Last Admin Dose Admin Acetaminophen/ Hydrocodone Bitart 1 ea ONCE ONCE PO 04/09/21 09:30 04/09/21 09:31 DC 04/09/21 09:38 1 EA Orphenadrine Citrate 30 mg ONCE ONCE IM 04/09/21 09:30 04/09/21 09:31 DC 04/09/21 09:38 30 MG (AMBER MCCANN MD) Vital Signs/I&O 04/09/21 04/09/21 08:42 12:55 Temp 34.6 Pulse 69 59 Resp 18 18 B/P (MAP) 174/77 (109) 174/79 Pulse Ox 98 97 O2 Delivery Room Air Room Air (AMBER MCCANN MD) Vital Signs/I&O Capillary Refill : Less Than 3 Seconds (SHANTI LIGHT MED STUDENT) Blood Pressure Mean: 109 Progress Note : Time: 10:38 Progress Note Pt received Hydrocodone and Orphenadrine, states that even about 30 minutes later she is still having significant pain. States that she would like to get imaging. Will get CT of her pelvis to check for any injury. If none, will prescribe more pain medication, possibly percocet (SHANTI LIGHT MED STUDENT) Departure Impression Primary Impression: Lumbar stenosis Qualified Codes: M48.061 - Spinal stenosis, lumbar region without neurogenic claudication Additional Impression: Lumbar back pain with radiculopathy affecting left lower extremity Disposition: HOME, SELF-CARE Condition: Improved Departure-Patient Inst. Decision time for Depature: 12:39 (AMBER MCCANN MD) Referrals: ERIC MONTALVO DO (PCP/Family) Primary Care Physician Patient Instructions: Radiculopathy (DC), Spinal Stenosis (DC) Add. Discharge Instructions: The CT scan showed arthritic changes and narrowing of your spinal canal called spinal stenosis. This is likely responsible for your pain and symptoms in your leg. This can be further characterized by MRI if deemed appropriate by your primary care provider. Please contact your primary care doctor on Sunday morning to review CT results, repeat exam, and develop a plan for further evaluation and treatment. Gradually increase level of activity as pain allows. Stop activities that worsen the pain. You may use hydrocodone as prescribed for pain. This medication may make you sleepy and may cause constipation. Please be careful with your activities while you are on this medication. You may wish to take a stool softener such as Colace while on this pain medication. You may also try cyclobenzaprine as a muscle relaxer if you have muscle spasms or tension in your back. This medication also may make you drowsy so use with caution. Call with questions or concerns. Return to the ER if you have worsening symptoms. All discharge instructions reviewed with patient and/or family. Voiced understanding. Scripts Docusate Sodium (Colace) 100 Mg Capsule 100 MG PO DAILY, #20 CAP Use daily while on opioid pain medications to prevent constipation. Skip if stools are loose or runny. Prov: AMBER MCCANN MD 04/09/21 Cyclobenzaprine HCl (Cyclobenzaprine HCl) 5 Mg Tablet 5-10 MG PO TID PRN for SPASMS, #10 TAB Prov: AMBER MCCANN MD 04/09/21 Hydrocodone/Acetaminophen (Hydrocodone-Acetamin 5-325 mg) 1 Each Tablet 0.5-1 TAB PO Q6H PRN for PAIN-MODERATE (5-7), #10 TAB Prov: AMBER MCCANN MD 04/09/21 Medical Student Attestation and Attending Note: I have personally interviewed and examined this patient along with Shanti Kaplan, MS4. I have reviewed student documentation including history, physical, and assessments. I agree with the documentation except where otherwise noted. Exam: General: Alert, oriented, no acute distress, well developed, ambulatory with walker HEENT: Normocephalic and atraumatic Heart: Regular rate and rhythm with syst murmur Lungs: Clear to auscultation bilaterally with normal effort Abdomen: Soft, nontender, nondistended, normal bowel sounds Extremities: There is mild tenderness to the lateral left hip. No pain with rotation or flexion of the hip. No tenderness with direct palpation of the lower extremity beyond the hip. Back: Tenderness in the paraspinous muscles on the left. No pain over the lumbar spine. Neuropsych: Alert, oriented, no focal deficits Skin: Warm and dry without rashes Patient was treated with Norflex and hydrocodone. NSAIDs were avoided due to her history of renal failure and diastolic heart failure. Steroids were avoided due to her diabetes. Patient initially had no significant improvement of pain after hydrocodone and Norflex. CT of the lumbar spine and pelvis was then obtained. By the time these results were available, pain did improve. CT noted no fractures but there was spinal stenosis noted. Patient was advised to follow-up with her primary care provider and discuss the potential for MRI for further characterization return precautions were reviewed. Prescriptions were provided. (AMBER MCCANN MD) Copy Copies To 1: ERIC MONTALVO DEREK MED STUDENT Apr 09, 2021 10:34 AMBER MCCANN MD Apr 09, 2021 12:42
--- NOTE | 2021-04-09 11:40 | Diagnostic Imaging Report ---
PROCEDURE: CT lumbar spine without contrast. TECHNIQUE: Multiple contiguous axial images were obtained through the lumbar spine without the use of intravenous contrast. Sagittal and coronal reformations were then performed. Auto Exposure Controls were utilized during the CT exam to meet ALARA standards for radiation dose reduction. INDICATION: Low back and thigh pain. CORRELATION STUDY: None FINDINGS: There is generalized bony demineralization present. There is posterior fusion with transpedicular screws and interconnecting rods at L4 and L5 level. Hardware appearing to be intact. There is grade 1-2 spondylolisthesis of L4 on L5. Intervertebral disc spacer device is present. Nonfused alignment demonstrates mild to moderate rightward curvature, apex at L2. There is no acute appearing compression deformity. Various degrees of disc space narrowing, most severe at the L2-L3 level on the left along the concavity of the curvature. Vacuum disc phenomena at L3-L4 level present. Prominent osteophyte at the L2-L3 level as well. There does appear to be moderate spinal canal narrowing at L2-L3 as well as a rather significant narrowing at the L3-L4 levels predominantly owing to ligamentum facet hypertrophy. Foraminal narrowing also suggested. Overall assessment however is compromised on this study with motion artifact. Dense aortoiliac wall calcification. Probable chronic dissection. Atrophic changes of the kidneys, left greater than right. The presence of small left and slightly smaller right pleural effusion associated with consolidation of the lung bases. IMPRESSION: 1. No definite evidence for acute bony abnormality of the lumbar spine. Posterior fusion at L4-L5 level with hardware intact. Grade 2 spondylolisthesis of L4 on L5. 2. Rather significant spinal canal stenosis suggested at the L3-L4, to a lesser degree at L2-L3 level owing to ligamentum facet hypertrophy and degenerative change. 3. Bilateral pleural effusions, left greater than right. 4. 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 Dictated by: Dictated on workstation # [id number]
--- NOTE | 2021-04-09 11:41 | Diagnostic Imaging Report ---
PROCEDURE: CT pelvis without contrast. TECHNIQUE: Multiple contiguous axial images were obtained through the pelvis without the use of intravenous contrast. Sagittal and coronal reformations were performed. Auto Exposure Controls were utilized during the CT exam to meet ALARA standards for radiation dose reduction. INDICATION: Low back pain, thigh pain. No acute injury. CORRELATION STUDY: None FINDINGS: Postoperative changes of the lumbar spinal fusion with transpedicular screws and interconnecting rods at L4-L5 level. There is generalized bony demineralization present. There is no acute displaced fracture of the pelvis. Moderately advanced degenerative changes of both hips which includes joint space narrowing and osteophyte formation. Bony trabecular pattern is intact. No lytic or destructive changes. There is rather significant aortoiliac vascular calcification. Moderate stool within the colon with colonic diverticulosis. Urinary bladder unremarkable. Uterus is retroverted. There is dense calcification of the abdominal aorta, aortic bifurcation as well as the iliac arteries. Likely high degree narrowing of the right common iliac artery. IMPRESSION: 1. Negative for acute bony abnormality about the pelvis. 2. Rather extensive aortoiliac and vascular calcifications. 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 Dictated by: Dictated on workstation # [id number]
[2021-04-09] MEDS ORDERED: CYCL5TAB PO (12:43)
[2021-04-09] MEDS ORDERED: ACHD5005 PO (12:43)
[2021-04-09] MEDS ORDERED: DOCU-143 PO (12:44)
[2021-04-09 12:55] VITALS: BP 174/79
== END 2021-04-09 12:55 | disposition home or self-care (01) ==
LOC: EDUNIT# 08:35 → ER 08:38
DX: M48.061 Spinal stenosis, lumbar region without neurogenic claudication (principal); M54.16 Radiculopathy, lumbar region; R60.0 Localized edema; I10 Essential (primary) hypertension; E11.9 Type 2 diabetes mellitus without complications; E78.00 Pure hypercholesterolemia, unspecified; K21.9 Gastro-esophageal reflux disease without esophagitis; Z79.899 Other long term (current) drug therapy; Z79.84 Long term (current) use of oral hypoglycemic drugs
CPT/HCPCS: 72131; 72192; 81000

== ENCOUNTER 2021-05-06 08:33 | Outpatient (RCR) | payer MEDICARE ==
[~2021-05-06 08:33] MED LIST changes: +ACHD5005 PO; +CYCL5TAB PO; +DOCU-143 PO
[2021-05-10] MEDS ORDERED: CEFU250T80 PO (21:29)
[2021-05-18] MEDS ORDERED: VIT1CAPS44 PO (10:01)
[2021-05-18] MEDS ORDERED: ATOR80TA76 PO (10:01)
[2021-05-18] MEDS ORDERED: LOSA100T57 PO (10:01)
[2021-05-18] MEDS ORDERED: CHOL10007 PO (10:01)
[2021-05-18] MEDS ORDERED: DIPH25TA29 PO (10:01)
[2021-05-18] MEDS ORDERED: MTP100TCR PO (10:01)
[2021-05-18] MEDS ORDERED: MAGN250T35 PO (10:01)
[2021-05-18] MEDS ORDERED: TRAM50TA3 PO (10:01)
[2021-05-18] MEDS ORDERED: EZET10TA49 PO (10:01)
[2021-05-18] MEDS ORDERED: HYDR100T27 PO (10:01)
[2021-05-18] MEDS ORDERED: LATA2.5D19 OD (10:01)
[2021-05-18] MEDS ORDERED: GLIM1TAB4 PO (10:01)
[2021-05-18] MEDS ORDERED: ASPI-1238 PO (10:01)
== END 2021-06-21 09:40 | disposition home or self-care (01) ==
PROVIDERS: ATTEND Family Medicine
DX: M48.061 Spinal stenosis, lumbar region without neurogenic claudication (principal); M54.16 Radiculopathy, lumbar region; E11.9 Type 2 diabetes mellitus without complications; I10 Essential (primary) hypertension; M81.0 Age-related osteoporosis without current pathological fracture; M06.9 Rheumatoid arthritis, unspecified

== ENCOUNTER 2021-05-10 19:41 | Emergency (ER) | payer MEDICARE ==
[~2021-05-10] VITALS: Ht 152.4 cm; Wt 43.5 kg
[2021-05-10 20:21] LABS: BILIRUBIN,URINE NEGATIVE (NEGATIVE); CLARITY,URINE CLEAR; COLOR,URINE YELLOW; GLUCOSE, URINE (UA) NEGATIVE (NEGATIVE); KETONES,URINE NEGATIVE (NEGATIVE); LEUKOCYTE ESTERASE ,URINE 3+ (NEGATIVE); NITRITE,URINE NEGATIVE (NEGATIVE); PH,URINE 5.5 (5-9); PROTEIN,URINE 1+ (NEGATIVE)
--- NOTE | 2021-05-10 20:43 | ED General ---
General Chief Complaint: General Problems/Pain Stated Complaint: WEAKNESS, POSSIBLE UTI, AMS Nursing Triage Note: VERBALIZES HAS BEEN INCREASINGLY WEAK OVER THE LAST MONTH. PATIENT DAUGHTER STATES PATIENT HAS HAD ELEVATED PULSE AND BLOOD PRESSURE TODAY, IS HAVING MEMORY PROBLEMS WHICH IS NEW FOR HER, ALSO HAS HAD A POOR APPETITE. DENIES COUGH, FEVER, NAUSEA OR VOMITING. Source of Information: Patient, Caregiver History of Present Illness Date Seen by Provider: May 10, 2021 Time Seen by Provider: 19:45 Initial Comments This is a well-appearing 85-year-old female who presents to the ER with complaints of generalized weakness, poor appetite. States this is what happened last time she had a urinary tract infection is concerned this may be happening again. No fever, chills, cough, shortness of breath, nausea, vomiting, abdominal pain. Allergies and Home Medications Allergies Coded Allergies: Niacin (Verified Allergy, Unknown, 12/04/06) Home Medications Albuterol Sulfate 2.5 Mg/3 Ml Vial.neb, 2.5 MG INH Q4H PRN for SHORTNESS OF BREATH Prescribed by: AMBER PATTEN on 01/23/19 0648 Aspirin 81 Mg Tab.chew, 81 MG PO DAILY, (Reported) Atorvastatin Calcium 80 Mg Tablet, 80 MG PO DAILY, (Reported) Benzonatate 100 Mg Capsule, 200 MG PO TID PRN for COUGH Prescribed by: AMBER PATTEN on 01/23/19 0648 Calcium Carbonate/Vitamin D3 1 Each Tablet, 1 EACH PO DAILY, (Reported) Cholecalciferol (Vitamin D3) 2,000 Unit Tablet, 2,000 UNIT PO DAILY, (Reported) Cyclobenzaprine HCl 5 Mg Tablet, 5-10 MG PO TID PRN for SPASMS Prescribed by: AMBER PATTEN on 04/09/21 1243 Diphenhydramine Hcl 25 Mg Tablet, 1-2 EACH PO HS PRN, (Reported) Docusate Sodium 100 Mg Capsule, 100 MG PO DAILY Use daily while on opioid pain medications to prevent constipation. Skip if stools are loose or runny. Prescribed by: AMBER PATTEN on 04/09/21 1244 Estrogens Conjugated 30 Gm Cr, 0.5 MG VG TWICE A WEEK, (Reported) Ezetimibe 10 Mg Tablet, 10 MG PO DAILY@0900, (Reported) Glimepiride 2 Mg Tablet, 2 MG PO DAILY, (Reported) Glucosa Hodges 2KCL/Chondroitin Hodges 1 Each Tablet, 1 EACH PO DAILY, (Reported) Hydrocodone/Acetaminophen 1 Each Tablet, 0.5-1 TAB PO Q6H PRN for PAIN-MODERATE (5-7) Prescribed by: AMBER PATTEN on 04/09/21 1243 Magnesium Oxide 400 Mg Tablet, 400 MG PO DAILY, (Reported) Metoprolol Succinate 100 Mg Tab.sr.24h, 100 MG PO DAILY, (Reported) [place]-3 Fatty Acids/Fish Oil 1 Each Capsule, 1,200 MG PO BID, (Reported) Pantoprazole Sodium 40 Mg Tablet.dr, 40 MG PO DAILY PRN for HEARTBURN, (Reported) Ubidecarenone 200 Mg Capsule, 200 MG PO DAILY, (Reported) Valsartan 320 Mg Tablet, 320 MG PO HS, (Reported) Past Rbsyfir-Zkpngc-Vdrytt Hx Patient Social History Tobacco Use?: No Use of E-Cig and/or Vaping dev: No Substance use?: No Alcohol Use?: No Pt feels they are or have been: No Immunizations Up To Date Tetanus Booster (TDap): Unknown Influenza Vaccine Up-to-Date: Yes; Up-to-Date First/Initial COVID19 Vaccinat: 12.02.20 Second COVID19 Vaccination Guero: 12.30.20 COVID19 Vaccine Transportation Escort: MARLYS Seasonal Allergies Seasonal Allergies: No Past Medical History Surgeries: Yes (back sx, aortic valve replaced) CABG, Orthopedic Respiratory: No Cardiac: Yes Heart Murmur, High Cholesterol, Hypertension Neurological: No Reproductive Disorders: No 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 0.0oz. 51.682862uf; 18.00 BMI Method:Stated Progress/Results/Core Measures Suspected Sepsis SIRS Temperature: Pulse: 93 Respiratory Rate: 18 Laboratory Tests 05/10/21 20:20: White Blood Count 4.8 Blood Pressure 145 /68 Mean: 93 Laboratory Tests 05/10/21 20:20: Creatinine 1.49H, Platelet Count 163, Total Bilirubin 0.7 Results/Orders Lab Results Laboratory Tests Test 05/10/21 20:10 05/10/21 20:20 Range/Units Urine Color YELLOW Urine Clarity CLEAR Urine pH 5.5 5-9 Urine Specific [place] 1.010 L 1.016-1.022 Urine Protein 1+ H NEGATIVE Urine Glucose (UA) NEGATIVE NEGATIVE Urine Ketones NEGATIVE NEGATIVE Urine Nitrite NEGATIVE NEGATIVE Urine Bilirubin NEGATIVE NEGATIVE Urine Urobilinogen 0.2 < = 1.0 MG/DL Urine Leukocyte Esterase 3+ H NEGATIVE Urine RBC (Auto) NEGATIVE NEGATIVE Urine RBC 0-2 /HPF Urine WBC 5-10 H /HPF Urine Crystals PRESENT H /LPF Urine Amorphous Sediment FEW CB URATES H /LPF Urine Bacteria FEW H /HPF Urine Casts NONE /LPF Urine Mucus NEGATIVE /LPF Urine Culture Indicated YES White Blood Count 4.8 4.3-11.0 10^3/uL Red Blood Count 4.09 3.80-5.11 10^6/uL Hemoglobin 12.9 11.5-16.0 g/dL Hematocrit 37 35-52 % Mean Corpuscular Volume 90 80-99 fL Mean Corpuscular Hemoglobin 32 25-34 pg Mean Corpuscular Hemoglobin Concent 35 32-36 g/dL Red Cell Distribution Width 12.0 10.0-14.5 % Platelet Count 163 130-400 10^3/uL Mean Platelet Volume 11.1 9.0-12.2 fL Immature Granulocyte % (Auto) 0 % Neutrophils (%) (Auto) 69 42-75 % Lymphocytes (%) (Auto) 17 12-44 % Monocytes (%) (Auto) 12 0-12 % Eosinophils (%) (Auto) 1 0-10 % Basophils (%) (Auto) 1 0-10 % Neutrophils # (Auto) 3.3 1.8-7.8 10^3/uL Lymphocytes # (Auto) 0.8 L 1.0-4.0 10^3/uL Monocytes # (Auto) 0.6 0.0-1.0 10^3/uL Eosinophils # (Auto) 0.1 0.0-0.3 10^3/uL Basophils # (Auto) 0.0 0.0-0.1 10^3/uL Immature Granulocyte # (Auto) 0.0 0.0-0.1 10^3/uL Potassium Level 4.7 3.6-5.0 MMOL/L Chloride Level 82 L 98-107 MMOL/L Carbon Dioxide Level 29 21-32 MMOL/L Anion Gap 13 5-14 MMOL/L Blood Urea Nitrogen 31 H 7-18 MG/DL Creatinine 1.49 H 0.60-1.30 MG/DL Estimat Glomerular Filtration Rate 33 BUN/Creatinine Ratio 21 Glucose Level 208 H 70-105 MG/DL Calcium Level 9.8 8.5-10.1 MG/DL Corrected Calcium 9.6 8.5-10.1 MG/DL Total Bilirubin 0.7 0.1-1.0 MG/DL Aspartate Amino Transf (AST/SGOT) 31 5-34 U/L Alanine Aminotransferase (ALT/SGPT) 35 0-55 U/L Alkaline Phosphatase 57 40-136 U/L Total Protein 7.0 6.4-8.2 GM/DL Albumin 4.3 3.2-4.5 GM/DL My Orders Orders - MATTHEW RODRÍGUEZ APRN Ua Culture If Indicated (05/10/21 19:45) Cbc With Automated Diff (05/10/21 20:42) Comprehensive Metabolic Panel (05/10/21 20:42) Urine Culture (05/10/21 20:10) Ns Iv 500 Ml (Sodium Chloride 0.9%) (05/10/21 21:00) Medications Given in ED Current Medications Medications Dose Ordered Sig/Yelena Route Start Time Stop Time Status Last Admin Dose Admin Sodium Chloride 500 ml @ 30 mls/hr [id number] ONCE IV 05/10/21 21:00 05/11/21 13:39 05/10/21 21:06 30 MLS/HR Vital Signs/I&O 05/10/21 20:00 Temp 36.9 Pulse 93 Resp 18 B/P (MAP) 145/68 (93) Pulse Ox 100 O2 Delivery Room Air Capillary Refill : Less Than 3 Seconds Blood Pressure Mean: 93 Departure Impression Primary Impression: Urinary tract infection Disposition: 01 HOME, SELF-CARE Condition: Stable Departure-Patient Inst. Decision time for Depature: 21:28 Referrals: ERIC MONTALVO DO (PCP) Primary Care Physician Patient Instructions: Urinary Tract Infections in Adults Add. Discharge Instructions: Plan: 1. Drink plenty of fluids. 2. Take antibiotics as directed and complete full course. DO not take at the same time as your Pantoprazole. Separate by at least two hours. 3. Keep follow up with your primary care provider tomorrow as scheduled. 4. Return to ER if you develop and new, concerning, or worsening symptoms. All discharge instructions reviewed with patient and/or family. Voiced understanding. Scripts Cefuroxime Axetil (Cefuroxime) 250 Mg Tablet 250 MG PO BID for 10 Days, #20 TAB 0 Refills Prov: MATTHEW RODRÍGUEZ TOUR COORDINATOR 05/10/21 MATTHEW RODRÍGUEZ TOUR COORDINATOR May 10, 2021 20:43
[2021-05-10 20:49] LABS: RBC,URINE 0-2 /HPF
[2021-05-10 20:50] LABS: AMORPHOUS SEDIMENT,UR FEW AMOR URATES /LPF; BACTERIA,URINE FEW /HPF
[2021-05-10] MEDS ORDERED: NS IV 500 ML 500 ML IV ONE (21:00)
[2021-05-10 21:10] LABS: BASOPHILS % (AUTO) 1 % (0-10); EOSINOPHILS # (AUTO) 0.1 10^3/uL (0.0-0.3); EOSINOPHILS % (AUTO) 1 % (0-10); HEMATOCRIT 37 % (35-52); HEMOGLOBIN 12.9 g/dL (11.5-16.0); LYMPHOCYTES # (AUTO) 0.8 10^3/uL (1.0-4.0); LYMPHOCYTES % (AUTO) 17 % (12-44); MEAN CORPUSCULAR HEMOGLOBIN 32 pg (25-34); MEAN CORPUSCULAR HGB CONC 35 g/dL (32-36); MEAN CORPUSCULAR VOLUME 90 fL (80-99); MEAN PLATELET VOLUME 11.1 fL (9.0-12.2); MONOCYTES # (AUTO) 0.6 10^3/uL (0.0-1.0); MONOCYTES % (AUTO) 12 % (0-12); NEUTROPHILS # (AUTO) 3.3 10^3/uL (1.8-7.8); NEUTROPHILS % (AUTO) 69 % (42-75); PLATELET COUNT 163 10^3/uL (130-400); WHITE BLOOD COUNT 4.8 10^3/uL (4.3-11.0)
[2021-05-10 21:13] LABS: ALBUMIN 4.3 GM/DL (3.2-4.5); POTASSIUM 4.7 MMOL/L (3.6-5.0)
[2021-05-10 21:14] LABS: CALCIUM 9.8 MG/DL (8.5-10.1)
[2021-05-10 21:17] LABS: BILIRUBIN,TOTAL 0.7 MG/DL (0.1-1.0)
[2021-05-10 21:19] LABS: CREATININE SERUM 1.49 MG/DL (0.60-1.30)
[2021-05-10] MEDS ORDERED: CEFU250T80 PO (21:29)
[2021-05-10] MEDS ORDERED: cefTRIAXone 1,000 MG in WATER (STERILE) FOR INJECTION 10 ML IV ONE (21:30)
[2021-05-10 22:01] VITALS: BP 168/82
== END 2021-05-10 22:03 | disposition home or self-care (01) ==
LOC: EDUNIT# 19:41 → ER 19:45
DX: N39.0 Urinary tract infection, site not specified (principal); I10 Essential (primary) hypertension; E78.00 Pure hypercholesterolemia, unspecified; K21.9 Gastro-esophageal reflux disease without esophagitis; E11.9 Type 2 diabetes mellitus without complications; Z79.899 Other long term (current) drug therapy; Z79.82 Long term (current) use of aspirin
CPT/HCPCS: 36415; 80053; 81000; 85025; 87088

== ENCOUNTER 2021-05-17 17:29 | Inpatient (IN) | payer MEDICARE ==
[~2021-05-17] VITALS: Ht 152.4 cm; Wt 43.5 kg
[~2021-05-17 17:29] MED LIST changes: +CEFU250T80 PO
[2021-05-17] MEDS ORDERED: ACETAMINOPHEN 325 MG TABLET PO PRN (18:15)
[2021-05-17] MEDS ORDERED: SODIUM CHLORIDE 3% 500 ML IV SCH (18:15)
[2021-05-17] MEDS ORDERED: ONDANSETRON 4 MG/2 ML (SDV) Z0FRAN IV PRN (18:15)
[2021-05-17] MEDS ORDERED: ENOXAPARIN 40 MG/0.4 ML (LOVENOX) SYR SC SCH (18:15)
[2021-05-17] MEDS ORDERED: PATIENT MAY USE OWN MEDS, ALL PO SCH (18:15)
[2021-05-17 19:26] VITALS: BP 152/62
[2021-05-17 19:30] VITALS: BP 126/48
[2021-05-17 19:45] VITALS: BP 114/46
[2021-05-17 20:00] VITALS: BP_SYST 128; BP_SYST 152; BP_DIAS 53; BP_DIAS 62
[2021-05-17] MEDS: inSUlin ASPART (NovoLOG) 1 UNIT/0.01 ML (CHARGE PER UNIT) SC SCH ×2 (20:00→21:01)
[2021-05-17 20:41] LABS: POTASSIUM 3.9 MMOL/L (3.6-5.0)
[2021-05-17 20:42] LABS: CALCIUM 9.1 MG/DL (8.5-10.1)
[2021-05-17 20:47] LABS: CREATININE SERUM 1.47 MG/DL (0.60-1.30)
[2021-05-17 21:00] VITALS: BP 104/50
[2021-05-17] MEDS ORDERED: LATANOPROST 0.005% (XALATAN) OPHTH SOLN 2.5 ML OU SCH (21:00)
[2021-05-17] MEDS ORDERED: diphenhydrAMINE 25 MG TAB (BENADRYL) PO SCH (21:00)
[2021-05-17] MEDS: hydrALAZINE (APRESOLINE) 25 MG TAB PO SCH (21:01)
[2021-05-17 22:00] VITALS: BP 122/45
[2021-05-18] VITALS: BP 122/46
[2021-05-18 00:57] LABS: POTASSIUM 3.7 MMOL/L (3.6-5.0)
[2021-05-18 00:58] LABS: CALCIUM 8.5 MG/DL (8.5-10.1)
[2021-05-18 01:03] LABS: CREATININE SERUM 1.22 MG/DL (0.60-1.30)
[2021-05-18 02:00] VITALS: BP 111/43
[2021-05-18 04:00] VITALS: BP 128/55
[2021-05-18 04:09] LABS: POTASSIUM 3.7 MMOL/L (3.6-5.0)
[2021-05-18 04:11] LABS: CALCIUM 8.6 MG/DL (8.5-10.1)
[2021-05-18 04:15] LABS: CREATININE SERUM 1.1 MG/DL (0.60-1.30)
[2021-05-18 04:17] LABS: MAGNESIUM 1.6 MG/DL (1.6-2.4)
[2021-05-18] MEDS: inSUlin ASPART (NovoLOG) 1 UNIT/0.01 ML (CHARGE PER UNIT) SC SCH ×2 (06:10→10:52)
[2021-05-18 08:00] VITALS: BP 144/83
[2021-05-18] MEDS ORDERED: NS IV 1000 ML 1,000 ML IV SCH (08:45)
[2021-05-18] MEDS ORDERED: LOSARTAN 100 MG (COZAAR) TABLET PO SCH (09:00)
[2021-05-18] MEDS ORDERED: meTOprolol SUCCINATE 100 MG (TOPROL XL) TAB PO SCH (09:00)
[2021-05-18 09:08] LABS: CALCIUM 8.9 MG/DL (8.5-10.1); CREATININE SERUM 1.06 MG/DL (0.60-1.30)
[2021-05-18] MEDS: hydrALAZINE (APRESOLINE) 25 MG TAB PO SCH (09:46)
[2021-05-18] MEDS ORDERED: VIT1CAPS44 PO (10:01)
[2021-05-18] MEDS ORDERED: LOSA100T57 PO (10:01)
[2021-05-18] MEDS ORDERED: CHOL10007 PO (10:01)
[2021-05-18] MEDS ORDERED: ASPI-1238 PO (10:01)
[2021-05-18] MEDS ORDERED: LATA2.5D19 OD (10:01)
[2021-05-18] MEDS ORDERED: MTP100TCR PO (10:01)
[2021-05-18] MEDS ORDERED: GLIM1TAB4 PO (10:01)
[2021-05-18] MEDS ORDERED: MAGN250T35 PO (10:01)
[2021-05-18] MEDS ORDERED: DIPH25TA29 PO (10:01)
[2021-05-18] MEDS ORDERED: TRAM50TA3 PO (10:01)
[2021-05-18] MEDS ORDERED: EZET10TA49 PO (10:01)
[2021-05-18] MEDS ORDERED: HYDR100T27 PO (10:01)
[2021-05-18] MEDS ORDERED: ATOR80TA76 PO (10:01)
[2021-05-18 12:00] VITALS: BP 127/50
[2021-05-18 12:59] LABS: CALCIUM 8.8 MG/DL (8.5-10.1); CREATININE SERUM 1.07 MG/DL (0.60-1.30)
--- NOTE | 2021-05-18 18:37 | Short Stay Summary ---
History of Present Illness History of Present Illness Reason for visit/HPI This is an 85 year old female with worsening weakness and confusion. She was found to be severely hyponatremic with a sodium of 120 so it was decided to admit her for hypertonic saline and monitoring. Date of Admission May 17, 2021 at 19:04 Date of Discharge May 18, 2021 at 14:57 Time Seen by Provider: 08:35 Attending Physician Mounika Díaz DO Admitting Physician Mounika Díaz DO Consult Allergies and Home Medications Allergies Coded Allergies: niacin (Verified Allergy, Unknown, 12/04/06) Home Medications Aspirin 81 Mg Tablet.dr, 81 MG PO DAILY, (Reported) Last Action: Reviewed Atorvastatin Calcium 80 Mg Tablet, 80 MG PO DAILY, (Reported) Last Action: Reviewed Cholecalciferol (Vitamin D3) 25 Mcg Capsule, 50 MCG PO DAILY, (Reported) TAKES 2 (25MCG) DAILY Last Action: Reviewed Diphenhydramine HCl 25 Mg Tablet, 25 MG PO HS, (Reported) Last Action: Reviewed Estrogens Conjugated 30 Gm Cr, 0.5 MG VG TWICE A WEEK, (Reported) Last Action: Reviewed Ezetimibe 10 Mg Tablet, 10 MG PO DAILY, (Reported) Last Action: Reviewed Glimepiride 2 Mg Tablet, 2 MG PO BID, (Reported) Last Action: Reviewed Glimepiride 1 Mg Tablet, 1 MG PO 1200, (Reported) Last Action: Reviewed Hydralazine HCl 100 Mg Tablet, 100 MG PO BID, (Reported) Last Action: Reviewed Latanoprost 2.5 Ml Drops, 1 DROP OD HS, (Reported) Last Action: Reviewed Losartan Potassium 100 Mg Tablet, 100 MG PO 1200, (Reported) Last Action: Reviewed Magnesium Oxide 250 Mg Tablet, 250 MG PO DAILY, (Reported) Last Action: Reviewed Metoprolol Succinate 100 Mg Tab.er.24h, 100 MG PO DAILY, (Reported) Last Action: Reviewed Vit C/E/Zn/Coppr/Lutein/Zeaxan 1 Each Capsule, 1 EACH PO BID, (Reported) Last Action: Reviewed Patient Home Medication List Home Medication List Reviewed: Yes Past Movhirb-Yatblo-Twnsks Hx Patient Social History Marrital Status: Alcohol Beverage of Choice: Wine 2nd Hand Smoke Exposure: No Recent Hopitalizations: No Have you traveled recently?: No Pt feels they are or have been: No Immunizations Up To Date Tetanus Booster (TDap): Unknown Date of Pneumonia Vaccine: Jul 27, 2014 Date of Influenza Vaccine: Sep 02, 2016 Seasonal Allergies Seasonal Allergies: No Surgeries Yes (back sx, aortic valve replaced) CABG, Orthopedic Respiratory No Cardiovascular Yes Heart Murmur, High Cholesterol, Hypertension Neurological No Reproductive System Hx Reproductive Disorders: No EDGE TRIMMER History: Menopausal Genitourinary No Gastrointestinal Yes Gastroesophageal Reflux Musculoskeletal Yes Arthritis Endocrine History of Endocrine Disorders: Yes Endocrine Disorders: Diabetes, Non-Insulin dep HEENT History of HEENT Disorders: Yes 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 Psychosocial History of Psychiatric Problem: No Integumentary History of Skin or Integumenta: No Blood Transfusions History of Blood Disorders: No Review of Systems Constitutional: weakness, weight loss EENTM: No see HPI, No no symptoms reported, No ear discharge, No hearing loss, No ear pain, No blurred vision, No double vision, No eye pain, No tearing, No vision loss, No dental problems, No hoarseness, No mouth pain, No mouth swelling, No epistaxis, No nose congestion, No nose pain, No throat pain, No throat swelling, No other Respiratory: No no symptoms reported, No see HPI, No cough, No dyspnea on exertion, No hemoptysis, No orthopnea, No phlegm, No short of breath, No s tridor, No wheezing, No other Cardiovascular: No no symptoms reported, No see HPI, No chest pain, No edema, No Hx of Intervention, No palpitations, No syncope, No vascular heart diseas, No other Gastrointestinal: No RUQ, No LUQ, No RLQ, No LLQ, No no symptoms reported, No see HPI, No abdominal pain, No constipation, No diarrhea, No dysphagia, No hematemesis, No heartburn, No jaundice, No loss of appetite, No melena, No nausea, No vomiting, No other Genitourinary: No no symptoms reported, No see HPI, No decreased output, No discharge, No dysuria, No frequency, No hematuria, No hesitancy, No incontinence, No nocturia, No pain, No other Musculoskeletal: back pain, muscle weakness Skin: No no symptoms reported, No see HPI, No change in color, No change in hair/nails, No dryness, No hx of skin cancer, No lesions, No lumps, No pruritus, No rash, No other Psychiatric/Neurological: Weakness, Other (confusion) Physical Exam Vital Signs Vital Signs - First Documented 05/17/21 05/17/21 19:25 19:26 Pulse 67 Resp 18 B/P (MAP) 152/62 (75) Pulse Ox 92 O2 Delivery Room Air Capillary Refill : Height, Weight, BMI Height: 5'0" Weight: 114lbs. 0.0oz. [id number]; 18.60 BMI Method:Stated General Appearance: No Apparent Distress Neck: Supple Respiratory: Lungs Clear Cardiovascular: Regular Rate, Rhythm, Systolic Murmur, Gallop/S4 Gastrointestinal: Non Tender, Soft Back: No CVA Tenderness Extremity: Non Tender, No Calf Tenderness, No Pedal Edema Neurologic/Psychiatric: Alert, Oriented x3 Skin: Warm/Dry Short Stay Diagnosis Discharge Diagnosis-Short Stay Final Discharge Diagnosis: 1. Acute Hyponatremia--improved 2. Confusion--improved 3. Hypertension--stable 4. Diabetes mellitus with hyperglycemia-improved Conclusion Labs Laboratory Tests 05/17/21 20:00: Sodium Level 128L, Potassium Level 3.9, Chloride Level 88L, Carbon Dioxide Level 28, Anion Gap 12, Blood Urea Nitrogen 36H, Creatinine 1.47H, Estimat Glomerular Filtration Rate 34, BUN/Creatinine Ratio 24, Glucose Level 228H, Calcium Level 9.1 05/18/21 00:33: Sodium Level 130L, Potassium Level 3.7, Chloride Level 95L, Carbon Dioxide Level 25, Anion Gap 10, Blood Urea Nitrogen 38H, Creatinine 1.22, Estimat Glomerular Filtration Rate 42, BUN/Creatinine Ratio 31, Glucose Level 134H, Calcium Level 8.5 05/18/21 03:43: Sodium Level 132L, Potassium Level 3.7, Chloride Level 98, Carbon Dioxide Level 26, Anion Gap 8, Blood Urea Nitrogen 34H, Creatinine 1.10, Estimat Glomerular Filtration Rate 47, BUN/Creatinine Ratio 31, Glucose Level 98, Calcium Level 8.6, Magnesium Level 1.6 05/18/21 08:20: Sodium Level 133L, Potassium Level 4.0, Chloride Level 100, Carbon Dioxide Level 26, Anion Gap 7, Blood Urea Nitrogen 30H, Creatinine 1.06, Estimat Glomerular Filtration Rate 49, BUN/Creatinine Ratio 28, Glucose Level 84, Calcium Level 8.9 05/18/21 10:29: Glucometer 167H 05/18/21 12:35: Sodium Level 133L, Potassium Level 4.0, Chloride Level 101, Carbon Dioxide Level 27, Anion Gap 5, Blood Urea Nitrogen 31H, Creatinine 1.07, Estimat Glomerular Filtration Rate 49, BUN/Creatinine Ratio 29, Glucose Level 139H, Calcium Level 8.8 Conclusion/Plan This is an 85 year old female with worsening weakness and confusion. She was found to be severely hyponatremic with a sodium of 120 so it was decided to admit her for hypertonic saline and monitoring. She was admitted to the ICU and started on hypertonic saline via the IV. She was monitored on telemetry and vitals were monitored per ICU protocol. A Basic Metabolic Panel was monitored e very 4 hours. By the following morning her Na was up to 133. He daughter also noted that she was much less confused and the patient stated she felt better overall. The hypertonic saline was discontinued and she was started on NS until the following repeat chemistry. Her Na remained stable on the repeat chemistry at 133 so she was discharged home. She will resume all of her previous home medications except her HCTZ has been discontinued. She will have a repeat Chemistry panel in 5 days. MOUNIKA DÍAZ DO May 18, 2021 18:37
== END 2021-05-18 14:57 | disposition home or self-care (01) | DRG 641 ==
LOC: ICU 19:04
PROVIDERS: ADMIT Family Medicine; ATTEND Family Medicine
DX: E87.1 Hypo-osmolality and hyponatremia (principal); E78.00 Pure hypercholesterolemia, unspecified; I10 Essential (primary) hypertension; K21.9 Gastro-esophageal reflux disease without esophagitis; M19.90 Unspecified osteoarthritis, unspecified site; R41.0 Disorientation, unspecified; E11.65 Type 2 diabetes mellitus with hyperglycemia; Z79.82 Long term (current) use of aspirin; Z79.899 Other long term (current) drug therapy; Z95.1 Presence of aortocoronary bypass graft
CPT/HCPCS: 36415; 80048; 82947; 83735; 87081

== ENCOUNTER → 2021-08-01 | Outpatient (CLI) | payer MEDICARE ==
[~2021-08-01] MED LIST changes: +ASPI-1238 PO; +ATOR80TA76 PO; +CHOL10007 PO; +DIPH25TA29 PO; +EZET10TA49 PO; +GLIM1TAB4 PO; +HYDR100T27 PO; +LATA2.5D19 OD; +LOSA100T57 PO; +MAGN250T35 PO; +REGADENOSON 0.4 MG/5 ML SYR (LEXISCAN) IV ONE; +TRAM50TA3 PO; +VIT1CAPS44 PO
[2021-08-01 08:45] VITALS: BP 177/71
--- NOTE | 2021-08-01 11:25 | Cardiology Stress Test Report ---
Stress Test Report Date of Procedure/Referring: Date of Procedure: Aug 01, 2021 PCP Carolynn Tellez MD Admitting Physician Mounika Díaz DO Indications: HTN Baseline Heart Rate: 64 Baseline Blood Pressure: Blood Pressure Systolic: 177 Blood Pressure Diastolic: 71 Baseline Vitals Vital Signs Date Time Temp Pulse Resp B/P (MAP) Pulse Ox O2 Delivery O2 Flow Rate FiO2 08/01/21 08:45 64 177/71 (106) 96 Baseline EKG: Baseline EKG: NSR Summary After explaining the procedure to the patient, she signed a consent and then brought to the stress nuclear laboratory. Patient received 0.4 mg Lexiscan for stress test, ECG, heart rate and blood pressure were monitored continuously. Resting and stress dose of radio tracer were injected, imaging was acquired and reviewed in short axis, horizontal long axis and vertical long axis views. TID: 0.97 SSS: 6 SDS: 4 EF: 50 1. Patient tolerated Lexiscan well, had a transient episode of nausea and fatigue and dizziness 2. Baseline hypertension persisted during test 3. Mild reversible ischemia involving the basal to mid anterolateral wall and anterior wall 4. Normal left ventricular size, EF 50% CAORLYNN TELLEZ MD Aug 01, 2021 11:25
== END ==
LOC: CARD 07:30
PROVIDERS: ATTEND Internal Medicine Cardiovascular Disease
DX: I10 Essential (primary) hypertension (principal); I25.10 Atherosclerotic heart disease of native coronary artery without angina pectoris
CPT/HCPCS: 78452; 93017; A9502

== ENCOUNTER → 2021-09-15 | Outpatient (CLI) | payer MEDICARE ==
[~2021-09-15] MED LIST changes: -REGADENOSON 0.4 MG/5 ML SYR (LEXISCAN) IV ONE
== END ==
LOC: LABNPT 06:29
PROVIDERS: ATTEND Nurse Practitioner Family
DX: Z01.812 Encounter for preprocedural laboratory examination (principal); Z20.822 Contact with and (suspected) exposure to COVID-19
CPT/HCPCS: 87635

== ENCOUNTER → 2021-10-14 | Outpatient (CLI) | payer MEDICARE | LOC: LABNPT 08:34 | PROVIDERS: ATTEND Thoracic Surgery (Cardiothoracic Vascular Surgery) | DX: Z20.822 Contact with and (suspected) exposure to COVID-19 (principal) | CPT/HCPCS: 87635 ==

== ENCOUNTER → 2021-12-05 | Outpatient (RCR) | payer MEDICARE | END | disposition home or self-care (01) | LOC: CR 11-16 10:06 | PROVIDERS: ATTEND Thoracic Surgery (Cardiothoracic Vascular Surgery) | DX: Z95.2 Presence of prosthetic heart valve (principal) | CPT/HCPCS: 93798 ==

== ENCOUNTER → 2022-01-02 | Outpatient (RCR) | payer MEDICARE | END | disposition home or self-care (01) | LOC: CR 12-14 10:26 | PROVIDERS: ATTEND Thoracic Surgery (Cardiothoracic Vascular Surgery) | DX: Z29.8 Encounter for other specified prophylactic measures (principal); I35.0 Nonrheumatic aortic (valve) stenosis; Z95.2 Presence of prosthetic heart valve | CPT/HCPCS: 93798 ==

== ENCOUNTER 2022-01-20 10:08 | Outpatient (RCR) | payer MEDICARE | END 2022-02-02 | disposition home or self-care (01) | LOC: CR 10:08 | PROVIDERS: ATTEND Thoracic Surgery (Cardiothoracic Vascular Surgery) | DX: Z29.8 Encounter for other specified prophylactic measures (principal); I35.0 Nonrheumatic aortic (valve) stenosis; Z95.2 Presence of prosthetic heart valve | CPT/HCPCS: 93798 ==

== ENCOUNTER → 2023-03-02 | Outpatient (CLI) | payer MEDICARE | LOC: LAB 15:52 | PROVIDERS: ATTEND Internal Medicine Cardiovascular Disease | DX: I33.0 Acute and subacute infective endocarditis (principal) | CPT/HCPCS: 87040 ==

== ENCOUNTER → 2023-03-02 | Outpatient (CLI) | payer MEDICARE | LOC: CARD 09:51 | PROVIDERS: ATTEND Internal Medicine Cardiovascular Disease | DX: I08.1 Rheumatic disorders of both mitral and tricuspid valves (principal); I10 Essential (primary) hypertension; I25.10 Atherosclerotic heart disease of native coronary artery without angina pectoris; Z95.4 Presence of other heart-valve replacement | CPT/HCPCS: 93306 ==

== ENCOUNTER → 2023-08-28 | Outpatient (CLI) | payer MEDICARE ==
[~2023-08-28] MED LIST changes: -LOSA100T57 PO; +LOSA100T58 PO
--- NOTE | 2023-08-28 10:18 | Diagnostic Imaging Report ---
PROCEDURE: MR imaging of the brain without contrast. TECHNIQUE: Multiplanar, multisequence MR imaging of the brain was performed without contrast. INDICATION: Memory problems. COMPARISON: none FINDINGS: No acute ischemia, mass, or hemorrhage. Scattered T2 hyperintense signal seen in the periventricular and subcortical white matter. The ventricles and cortical sulci are mildly prominent. The basilar cisterns are symmetric and unremarkable. The sellar and suprasellar regions have a normal appearance. The brainstem and posterior fossa are unremarkable. There is atelectasis in the left maxillary sinus. The mastoid air cells demonstrate normal signal characteristics. Bilateral lens implants are seen. The scalp and calvarium have a normal appearance. IMPRESSION: 1. No acute ischemia, mass, or hemorrhage. 2. Mild parenchymal volume loss with scattered chronic microvascular disease. Dictated by: Dictated on workstation # [id number]
== END ==
LOC: RAD 09:24
PROVIDERS: ATTEND Family Medicine
DX: I67.89 Other cerebrovascular disease (principal); R41.3 Other amnesia; F01.B0 Vascular dementia, moderate, without behavioral disturbance, psychotic disturbance, mood disturbance, and anxiety
CPT/HCPCS: 70551